=== PATIENT | female | born 1980 | race African-American/Black ===

== ENCOUNTER 2016-02-27 10:00 | Inpatient (IN) | payer OTHER ==
[2016-02-27] MEDS ORDERED: ELECTROLYTE-148 SOLN 500 ML IV SCH ×2 (10:40→11:10)
[2016-02-27] MEDS ORDERED: CITRIC ACID/SODIUM CITRATE 30 ML UNIT-DOSE CUP PO ONE ×2 (10:40→12:19)
[2016-02-27 11:25] VITALS: BMI 35.2
--- NOTE | 2016-02-27 12:29 | HP ---
Past Medical History - Primary Care Physician PCP:: Arjun Hernández - Admission Chief Complaint: 39,2 weeks, previous c/s, GDM ,labor History of Present Illness: 35 yo f with hx of GDM, diet controlled ,c/o contraction since 10 am today, no rom, no bleeding. cx 1 to 2 cm 70 vx -2 mi, fhr cat 2 , advised repeat c/s , risk of c/s discussed aware risk of infection, bleeding, injury to bladder, bowel, vessels,post op complication, bleeding, blood transfusion, discussed. agrred to have c/s,declined BTL History Source: Patient Limitations to Obtaining History: No Limitations - Past Medical History ...: 5 ...Para: 3 ...Term: 3 ...: 0 ...Spon : 1 ...Induced : 0 ...Multiple Gestation: 0 ...LMP: 06/05/15 ... Weeks Gestation by Dates: 38.1 ...EDC by Dates: 03/11/16 ...EDC by Sono: 03/03/16 Endocrine: Yes: Diabetes Mellitus (gestational, diet controlled , non complient) - Past Surgical History Past Surgical History: Yes: Hx Myomectomy: No Hx Transabdominal Cerclage: No - Smoking History Smoking history: Never smoked Have you smoked in the past 12 months: No Aproximately how many cigarettes per day: 0 - Alcohol/Substance Use Hx Alcohol Use: No - Social History History of Recent Travel: No Home Medications - Allergies Allergies/Adverse Reactions: Allergies Allergy/AdvReac Type Severity Reaction Status Date / Time No Known Allergies Allergy Verified 07/18/15 11:10 - Home Medications Home Medications: Ambulatory Orders Pnv95/Ferrous Fumarate/FA [ Caplet] 1 each PO DAILY 02/27/16 Review of Systems - Review of Systems Constitutional: reports: No Symptoms Eyes: reports: No Symptoms HENT: reports: No Symptoms Neck: reports: No Symptoms Cardiovascular: reports: No Symptoms Respiratory: reports: No Symptoms Gastrointestinal: reports: Abdominal Pain Genitourinary: reports: No Symptoms Breasts: reports: No Symptoms Reported Musculoskeletal: reports: No Symptoms Integumentary: reports: No Symptoms Neurological: reports: No Symptoms Endocrine: reports: No Symptoms Hematology/Lymphatic: reports: No Symptoms Psychiatric: reports: No Symptoms Physical Exam - Maternity Vital Signs: Vital Signs Temperature 98.2 F 02/27/16 10:58 Pulse Rate 88 02/27/16 10:58 Respiratory Rate 20 02/27/16 10:58 Blood Pressure 133/74 02/27/16 10:58 O2 Sat by Pulse Oximetry (%) Constitutional: Yes: Well Nourished, No Distress, Calm Eyes: Yes: WNL, Conjunctiva Clear, EOM Intact HENT: Yes: WNL, Atraumatic, Normocephalic Neck: Yes: WNL, Supple, Trachea Midline Cardiovascular: Yes: WNL, Regular Rate and Rhythm Breast(s): Yes: WNL - Abdominal Exam/OB Number of Fetuses: Single Presentation: Vertex Regularity: Regular Intensity: Mod/Strong Heart Rate Location: [facility] Category: II Accelerations: Non-Uniform Decelerations: None - Vaginal Exam/OB Vaginal Bleediing: No Speculum Exam: No Dilatation (cm): 1 to 2 Effacement (%): 75 Amniotic Membrane Status: Intact Presentation: Vertex/Position Station: -2 - Physical Exam Musculoskeletal: Yes: Back Pain Edema: Yes Edema: LLE: Trace, RLE: Trace Deep Tendon Reflex Grade: Normal +2 Psychiatric: Yes: WNL Hemorrhage Risk Assessment - Risk Factors Medium Risk Factors: Yes: Prior , uterine surgery,or multiple laparotomies Risk Score: 1 Risk Level: Medium Risk Problem List - Problems (1) with 39 completed weeks gestation Code(s): Z3A.39 - 39 WEEKS GESTATION OF (2) Previous section complicating Code(s): O34.21 - MATERNAL CARE FOR SCAR FROM PREVIOUS * DO NOT USE * (3) Gestational diabetes mellitus Code(s): O24.419 - GESTATIONAL DIABETES MELLITUS IN , UNSP CONTROL Qualifiers: Gestational diabetes mellitus control: diet-controlled Trimester: third trimester Qualified Code(s): O24.410 - Gestational diabetes mellitus in , diet controlled (4) First stage of labor established Code(s): UXW0808 - Assessment/Plan admit for repeat c/s rba explained. agreed
[2016-02-27 14:11] LABS: ARTERIAL BLD GAS O2 SATURATION 14.4 % (90-98.9); ARTERIAL BLOOD GAS BASE EXCESS -3.6 meq/l (-2-2); ARTERIAL BLOOD GAS HCO3 25.2 meq/L (22-26); ARTERIAL BLOOD GAS PO2 7.9 mmHg (80-100); ARTERIAL BLOOD GAS pH 7.23 (7.35-7.45)
[2016-02-27 14:13] LABS: ART PUNCT SITE OTHER; LPM/O2% 21%; PT. ON O2? NO; TYPE OF O2 R/A
[2016-02-27 14:16] LABS: ART PUNCT SITE OTHER; ARTERIAL BLD GAS O2 SATURATION 37.4 % (90-98.9); ARTERIAL BLOOD GAS BASE EXCESS -3.1 meq/l (-2-2); ARTERIAL BLOOD GAS HCO3 23.6 meq/L (22-26); ARTERIAL BLOOD GAS PO2 19.1 mmHg (80-100); ARTERIAL BLOOD GAS pH 7.29 (7.35-7.45); LPM/O2% N; PT. ON O2? NO; TYPE OF O2 R/A
[2016-02-27] MEDS ORDERED: oxyCODONE HCL 5 MG TABLET PO PRN ×2 (14:20)
[2016-02-27] MEDS ORDERED: IBUPROFEN 800 MG/8 ML IJ IVPB PRN (14:20)
[2016-02-27] MEDS ORDERED: BENZOCAINE 28 GM HEMORRHOIDAL OINTMENT PR PRN (14:20)
[2016-02-27] MEDS ORDERED: BENZOCAINE 20% 57 GM BOTTLE TP PRN (14:20)
[2016-02-27] MEDS ORDERED: diphenhydrAMINE HCL 25 MG CAPSULE (FP) PO PRN (14:20)
[2016-02-27] MEDS ORDERED: METHYLERGONOVINE MALEATE 0.2 MG/1 ML AMP IM PRN (14:20)
[2016-02-27] MEDS ORDERED: WITCH HAZEL 50% (TUCKS) 40 PAD/JAR PAD TP PRN (14:20)
[2016-02-27] MEDS ORDERED: OXYTOCIN 20 UNITS in 0.9% NS 1,000 ML IV SCH (14:30)
[2016-02-27] MEDS ORDERED: DEXTROSE 5%-LACTATED RINGERS 1,000 ML IV SCH (14:30)
[2016-02-27] MEDS ORDERED: ONDANSETRON 4 MG/2 ML VIAL IVPB PRN (14:39)
[2016-02-27] MEDS ORDERED: morphine SULFATE/Preservative Free 0.5 MG/ML (1cc Syringe) SPIN ONE (14:39)
[2016-02-27] MEDS: CEFAZOLIN 1 GM/D5W 50 ML IVPB SCH (18:19)
[2016-02-28] MEDS: CEFAZOLIN 1 GM/D5W 50 ML IVPB SCH (01:56)
[2016-02-28 07:54] LABS: BASOPHIL 0.4 % (0-2.0); EOSINOPHIL 0.5 % (0-4.5); MCH 23.6 pg (25.7-33.7); MCHC 32.6 g/dl (32.0-36.0); MEAN CELL VOLUME 72.3 fl (80-96); MEAN PLT VOLUME 9.3 fl (7.5-11.1); PLATELET COUNT 128 K/MM3 (134-434); RDW 18.1 % (11.6-15.6); WHITE BLOOD COUNT 9.6 K/mm3 (4.0-10.0)
[2016-02-28] MEDS: SIMETHICONE 80 MG TAB.CHEW (FP) PO PRN ×3 (08:24→23:07)
[2016-02-28] MEDS: IBUPROFEN 600 MG TABLET (FP) PO PRN ×3 (08:24→23:08)
--- NOTE | 2016-02-28 08:34 | PN ---
Progress Note (short form) - Note Progress Note: pod 1 doing well ,has mild incisional pain Last Vital Signs Temp Pulse Resp BP Pulse Ox 98.9 F 87 20 122/75 02/28/16 06:00 02/28/16 06:00 02/28/16 06:00 02/28/16 06:00 abdomen soft, mild incisional tenderness . incision dry, clean ,no distension , no cva no calf tenderness plan ambulate , cbc, pain management Problem List - Problems (1) with 39 completed weeks gestation Code(s): Z3A.39 - 39 WEEKS GESTATION OF (2) Previous section complicating Code(s): O34.21 - MATERNAL CARE FOR SCAR FROM PREVIOUS * DO NOT USE * (3) Gestational diabetes mellitus Code(s): O24.419 - GESTATIONAL DIABETES MELLITUS IN , UNSP CONTROL Qualifiers: Gestational diabetes mellitus control: diet-controlled Trimester: third trimester Qualified Code(s): O24.410 - Gestational diabetes mellitus in , diet controlled (4) First stage of labor established Code(s): WIQ4179 -
[2016-02-28] MEDS ORDERED: DIPHTH,PERTUSS(ACELL),TET 0.5 ML DISP.SYRIN IM ONE (10:00)
[2016-02-28] MEDS: ENOXAPARIN NA (PORCINE) 40 MG/0.4 ML DISP.SYRIN SQ SCH (11:22)
--- NOTE | 2016-02-28 12:08 | PN ---
Progress Note (short form) - Note Progress Note: Anesthesia postop note 35 y/o F s/p spinal anesthesia for section, duramorph for postop pain management. POD#1, AAOX3, VSS, ambulating, pain well controlled, no complaints. No anesthesia complications.
[2016-02-28] MEDS ORDERED: BISACODYL 10 MG SUPP.RECT RC PRN (14:20)
[2016-02-28] MEDS: ACETAMINOPHEN 325 MG TABLET (FP) PO PRN ×2 (14:29→23:07)
--- NOTE | 2016-02-29 07:33 | PN ---
Post Progress Note - Subjective Subjective: Doing well postop. Tolerating regular diet, ambulating, voiding, passing flatus , pain well controlled. Mild incisional pain. Type of Delivery: Repeat C/S Vital Signs: Vital Signs Temperature 98.0 F 02/28/16 22:00 Pulse Rate 84 02/28/16 22:00 Respiratory Rate 20 02/28/16 22:00 Blood Pressure 124/80 02/28/16 22:00 O2 Sat by Pulse Oximetry (%) Breast Exam: Yes: Soft Uterus: Yes: Fundus Firm, Fundus below umbilicus Incision: Yes: Dressing dry and intact Abdomen/GI: Yes: Abdomen soft, Passing flatus Lochia: Yes: Rubra Lochia, amount: Small Extremities: Yes: Calves non-tender Perineum: Yes: Intact Activity: Ambulating - Labs Labs: CBC WBC 9.6 K/mm3 (4.0-10.0) D 02/28/16 05:35 RBC 4.47 M/mm3 (3.60-5.2) 02/28/16 05:35 Hgb 10.5 GM/dL (10.7-15.3) L D 02/28/16 05:35 Hct 32.3 % (32.4-45.2) L 02/28/16 05:35 MCV 72.3 fl (80-96) L 02/28/16 05:35 MCHC 32.6 g/dl (32.0-36.0) 02/28/16 05:35 RDW 18.1 % (11.6-15.6) H 02/28/16 05:35 Plt Count 128 K/MM3 (134-434) L 02/28/16 05:35 MPV 9.3 fl (7.5-11.1) 02/28/16 05:35 Neutrophils % 75.0 % (42.8-82.8) 02/28/16 05:35 Lymphocytes % 15.4 % (8-40) D 02/28/16 05:35 Monocytes % 8.7 % (3.8-10.2) 02/28/16 05:35 Eosinophils % 0.5 % (0-4.5) 02/28/16 05:35 Basophils % 0.4 % (0-2.0) 02/28/16 05:35 Assessment/Plan 33P2 POD#2 s/p R C/S, in labor. GDM. Doing well post op. VSS. AF. Hct stable -Routine postop care -Ambulate -Regular diet -encourage ambulation -anticipate d/c home POD#3/POD#4
[2016-02-29] MEDS: ENOXAPARIN NA (PORCINE) 40 MG/0.4 ML DISP.SYRIN SQ SCH (09:47)
[2016-02-29] MEDS: SIMETHICONE 80 MG TAB.CHEW (FP) PO PRN ×3 (09:55→21:43)
[2016-02-29] MEDS: ACETAMINOPHEN 325 MG TABLET (FP) PO PRN ×2 (09:55→17:11)
[2016-02-29] MEDS: IBUPROFEN 600 MG TABLET (FP) PO PRN ×3 (09:57→21:43)
[2016-02-29] MEDS ORDERED: SENNOSIDES/DOCUSATE COMBO (SENNA PLUS) TABLET (UD) PO PRN (22:00)
[2016-03-01 08:34] LABS: BASOPHIL 0.5 % (0-2.0); EOSINOPHIL 2.7 % (0-4.5); MCH 23.2 pg (25.7-33.7); MCHC 32.1 g/dl (32.0-36.0); MEAN CELL VOLUME 72.3 fl (80-96); NEUTROPHILS 68.2 % (42.8-82.8); PLATELET COUNT 157 K/MM3 (134-434); RDW 18.7 % (11.6-15.6); WHITE BLOOD COUNT 7.5 K/mm3 (4.0-10.0)
--- NOTE | 2016-03-01 08:43 | PN ---
Post Progress Note - Subjective Subjective: c/o pain scale 5-7 Post Day: 3 Type of Delivery: Repeat C/S Vital Signs: Vital Signs Temperature 98.3 F 03/01/16 08:25 Pulse Rate 77 03/01/16 08:25 Respiratory Rate 20 03/01/16 08:25 Blood Pressure 139/90 03/01/16 08:25 O2 Sat by Pulse Oximetry (%) Breast Exam: Yes: Soft, Other (BF , using pump ). No: Engorged Uterus: Yes: Fundus Firm, Fundus below umbilicus, Non-tender Incision: Yes: Dressing dry and intact, [place] intact Abdomen/GI: Yes: Abdomen soft, Tender, Passing flatus, Tolerating PO (diet). No : Abdominal Distention Lochia: Yes: Rubra Lochia, amount: Moderate Extremities: Yes: Calves non-tender Perineum: Yes: Intact Activity: Ambulating - Labs Labs: CBC WBC 7.5 K/mm3 (4.0-10.0) 03/01/16 06:30 RBC 4.29 M/mm3 (3.60-5.2) 03/01/16 06:30 Hgb 10.0 GM/dL (10.7-15.3) L 03/01/16 06:30 Hct 31.0 % (32.4-45.2) L 03/01/16 06:30 MCV 72.3 fl (80-96) L 03/01/16 06:30 MCHC 32.1 g/dl (32.0-36.0) 03/01/16 06:30 RDW 18.7 % (11.6-15.6) H 03/01/16 06:30 Plt Count 157 K/MM3 (134-434) D 03/01/16 06:30 MPV 10.0 fl (7.5-11.1) 03/01/16 06:30 Neutrophils % 68.2 % (42.8-82.8) 03/01/16 06:30 Lymphocytes % 21.7 % (8-40) D 03/01/16 06:30 Monocytes % 6.9 % (3.8-10.2) 03/01/16 06:30 Eosinophils % 2.7 % (0-4.5) D 03/01/16 06:30 Basophils % 0.5 % (0-2.0) 03/01/16 06:30 Assessment/Plan stable. ct po care
[2016-03-01] MEDS: ENOXAPARIN NA (PORCINE) 40 MG/0.4 ML DISP.SYRIN SQ SCH (09:59)
[2016-03-01] MEDS: SIMETHICONE 80 MG TAB.CHEW (FP) PO PRN ×2 (15:11→21:43)
[2016-03-01] MEDS: IBUPROFEN 600 MG TABLET (FP) PO PRN ×2 (15:11→21:44)
[2016-03-01] MEDS: ACETAMINOPHEN 325 MG TABLET (FP) PO PRN ×2 (15:12→21:44)
--- NOTE | 2016-03-01 20:50 | OP ---
DATE OF OPERATION: 02/27/2016 PREOPERATIVE DIAGNOSIS: 39 weeks, previous section, labor, request of repeat section. POSTOPERATIVE DIAGNOSIS: 39 weeks, previous section, labor, request of repeat section. PROCEDURE: Repeat low segment transverse section. SURGEON: Ravi Hernández M.D. BECK TENDER: Hu Cox ANESTHESIA: Spinal. ESTIMATED BLOOD LOSS: 500 mL. OPERATION: Patient was taken to operating room with adequate spinal anesthesia. Abdomen and peritoneum were prepped and draped. Pfannenstiel abdominal skin incision was made over the previous incision. Abdominal wall was cut layer by layer until the peritoneum was exposed and incised. Upon entering the abdominal cavity, the lower uterine segment was identified, and uterovesical fold of the peritoneum was established. The bladder was pushed down. Then with the lower blade of the Tushar retractor in the pelvis, a low transverse uterine incision was made. The incision extended laterally. Amniotic sac was entered. Clear fluid. Head delivered. Nasopharynx was suctioned. A live baby was delivered without any difficulty. Placenta was delivered manually. Uterine cavity was cleared of all remaining tissue. Uterine incision was closed in 2 layers, the 1st layer with 0 Biosyn continuous suture, the 2nd layer with 0 Biosyn imbricating the 1st layer. Bladder flap was closed with 0 Biosyn continuous suture. Both tubes and ovaries were checked and were normal. No active bleeding was seen. All the lap, sponge, and instrument counts were correct. Then peritoneum was closed with 0 Biosyn continuous suture. Muscles were brought together interrupted suture with 0 Biosyn. Fascia was closed with 0 Biosyn continuous sutures. Subcutaneous fat with interrupted sutures 0 Biosyn, and the skin was closed with lopez. The patient tolerated the procedure well and left the OR in good condition. RAVI HERNÁNDEZ M.D. [id number]
[2016-03-02 08:33] VITALS: BP 123/77; PULSE 79; TEMP 97.7
--- NOTE | 2016-03-02 08:45 | PN ---
Post Progress Note - Subjective Subjective: doing well, no issues no complaints Post Day: 4 Type of Delivery: Repeat C/S Vital Signs: Vital Signs Temperature 97.7 F 03/02/16 08:26 Pulse Rate 79 03/02/16 08:26 Respiratory Rate 20 03/02/16 08:26 Blood Pressure 123/77 03/02/16 08:26 O2 Sat by Pulse Oximetry (%) Breast Exam: Yes: Soft Uterus: Yes: Fundus Firm Incision: Yes: Evangeline intact Abdomen/GI: Yes: Abdomen soft Lochia: Yes: Rubra Lochia, amount: Small Extremities: Yes: Calves non-tender Perineum: Yes: Intact Activity: Ambulating - Labs Labs: CBC WBC 7.5 K/mm3 (4.0-10.0) 03/01/16 06:30 RBC 4.29 M/mm3 (3.60-5.2) 03/01/16 06:30 Hgb 10.0 GM/dL (10.7-15.3) L 03/01/16 06:30 Hct 31.0 % (32.4-45.2) L 03/01/16 06:30 MCV 72.3 fl (80-96) L 03/01/16 06:30 MCHC 32.1 g/dl (32.0-36.0) 03/01/16 06:30 RDW 18.7 % (11.6-15.6) H 03/01/16 06:30 Plt Count 157 K/MM3 (134-434) D 03/01/16 06:30 MPV 10.0 fl (7.5-11.1) 03/01/16 06:30 Neutrophils % 68.2 % (42.8-82.8) 03/01/16 06:30 Lymphocytes % 21.7 % (8-40) D 03/01/16 06:30 Monocytes % 6.9 % (3.8-10.2) 03/01/16 06:30 Eosinophils % 2.7 % (0-4.5) D 03/01/16 06:30 Basophils % 0.5 % (0-2.0) 03/01/16 06:30 Assessment/Plan as above oob dc home today see on sunday
[2016-03-02] MEDS: ENOXAPARIN NA (PORCINE) 40 MG/0.4 ML DISP.SYRIN SQ SCH (09:38)
[2016-03-02] MEDS: SIMETHICONE 80 MG TAB.CHEW (FP) PO PRN ×2 (11:06→15:41)
[2016-03-02] MEDS: IBUPROFEN 600 MG TABLET (FP) PO PRN ×2 (11:06→15:40)
[2016-03-02] MEDS: ACETAMINOPHEN 325 MG TABLET (FP) PO PRN (11:07)
--- NOTE | 2016-03-02 13:17 | PATH ---
Surgical Pathology Report Patient Name: RAVI DUNN Med. Rec. #: [id number] /Age/Gender: 1980 (Age: 35) / F Account: [id number] Location: [facility] OBS/PICKERS MATERIAL HANDLERS Taken: 02/27/2016 Received: 02/28/2016 Reported: 03/02/2016 Physicians: Arjun Hernández M.D. Specimen(s) Received PLACENTA Clinical History , GDM-diet, c/section x2, 2009, 2014/ -2006 Repeat c/section in labor Final Diagnosis PLACENTA, DELIVERY: FOCALLY DISRUPTED THIRD TRIMESTER PLACENTA WITH MILD INCREASE IN PREVILLOUS, PERIVILLOUS, AND PRECHORIONIC FIBRIN DEPOSITION, THREE VESSEL UMBILICAL CORD, AND PLACENTAL MEMBRANES WITH FOCAL AMNION HYPERPLASIA. Electronically Signed Sesar Koo M.D. Gross Description The specimen is received fresh, labeled "placenta" and is a 541 gram, 17.5 x 16.0 x 2.8 cm placenta with attached membranes and umbilical cord. The attached membranes are ramirez, translucent with focal opacities and insert marginally. The umbilical cord measures 12 cm in length and averages 1.1 cm in diameter. The cord inserts eccentrically, 4.5 cm to the nearest margin. No true knots or strictures are identified. Cut surface of the umbilical cord reveals 3 vessels. The surface is thurston-blue with fibrin deposition and appropriate caliber vessels. The maternal surface is red-brown with focal defects. Sectioning reveals red-brown, spongy parenchyma. No focal lesions are identified. Assessment Coordinator sections are submitted in three cassettes as follows: 1- membrane rolls and umbilical cord; 2-3- full thickness sections of placenta. /03/01/2016 [facility]03/01/2016
--- NOTE | 2016-03-02 20:23 | DS ---
Physical Exam-LONGITUDINAL FLOAT OPERATOR Vital Signs: Vital Signs Temperature 97.7 F 03/02/16 08:26 Pulse Rate 79 03/02/16 08:26 Respiratory Rate 20 03/02/16 08:26 Blood Pressure 123/77 03/02/16 08:26 O2 Sat by Pulse Oximetry (%) Constitutional: Yes: Well Nourished, No Distress, Calm Eyes: Yes: WNL, Conjunctiva Clear, EOM Intact HENT: Yes: WNL, Atraumatic, Normocephalic Neck: Yes: WNL, Supple, Trachea Midline Cardiovascular: Yes: WNL, Regular Rate and Rhythm Respiratory: Yes: WNL, Regular, CTA Bilaterally Gastrointestinal: Yes: WNL ...Rectal Exam: Yes: WNL Renal/: Yes: WNL ....Post : Yes: Uterus firm, Uterus non-tender, Moderate lochia serosa Breast(s): Yes: WNL Musculoskeletal: Yes: WNL Extremities: Yes: WNL Edema: No Integumentary: Yes: WNL Wound/Incision: Yes: Clean/Dry, Well Approximated, Saima Intact Neurological: Yes: WNL, Alert, Oriented ...Motor Strength: WNL Psychiatric: Yes: WNL, Alert, Oriented Labs: CBC, BMP 03/01/16 06:30 Delivery - Delivery Section: Repeat, Low Flap Transverse Type of Anesthesia: Epidural, Spinal (no complication) Episiotomy/Laceration: None EBL (cc): 500 Delivery, Single - Stages of Labor Date 1st Stage Initiatied: 02/27/16 Time 1st Stage Initiated: 01:00 Date of Delivery: 02/27/16 Time of Delivery: 13:50 Time Placenta Delivered: 13:52 Placenta: Yes: Expressed - Condition of Infant Correction Lieutenant/Legal Recruiter Present: No Gender: Female Weight: 9 lb 4 oz Position: Left, OA Total Hours ROM (Hrs/Mins): 0/2 - 1 Minute Total Score: 8 5 Minutes Total Score: 8 - [place] Feeding Plan Initial Plan: Elected not to breastfeed exclusively throughout hospitalization Discharge Summary Reason For Visit: REPEAT C SECTION Procedures: Principal: repeat LST c/s Condition: Good - Instructions Diet, Activity, Other Instructions: see on for staple removal 03/06/16 call [facility] for appointment. [phone]. Referrals: Av Pino MD [Staff Physician] - Disposition: HOME - Home Medications Comprehensive Discharge Medication List: Ambulatory Orders Pnv95/Ferrous Fumarate/FA [ Caplet] 1 each PO DAILY 02/27/16 Ibuprofen [Motrin -] 600 mg PO TID #21 tablet 03/02/16
== END 2016-03-02 16:10 | disposition home or self-care (01) | DRG 540 ==
LOC: JDEL 10:00 → JLDR 10:40 → J3W 16:49
PROVIDERS: ADMIT Obstetrics & Gynecology; ATTEND Obstetrics & Gynecology
PROC: 10D00Z1 Extraction of Products of Conception, Low, Open Approach (ICD-10-PCS; principal; 2016-02-27)
DX: O34.211 Maternal care for low transverse scar from previous cesarean delivery (principal); O24.420 Gestational diabetes mellitus in childbirth, diet controlled; Z3A.39 39 weeks gestation of pregnancy; Z37.0 Single live birth
CPT/HCPCS: 36415; 36600; 82803; 85025; 88307-TC; 90715

== ENCOUNTER 2018-01-24 20:26 | Emergency (ER) | payer OTHER ==
[2018-01-24 20:38] VITALS: BP 169/88; PULSE 98; TEMP 98; BMI 34.7
[2018-01-24] MEDS ORDERED: ACETAMINOPHEN 325 MG TABLET (FP) PO ONE (22:16)
[2018-01-24] MEDS ORDERED: ACETAMINOPHEN 325 MG TABLET (FP) ONE (22:24)
--- NOTE | 2018-01-24 22:25 | PDOC ---
History of Present Illness - General Chief Complaint: Lightheaded Stated Complaint: Revisit, Lab Variance Time Seen by Provider: 01/24/18 22:04 History Source: Patient Exam Limitations: No Limitations Past History - Past Medical History Allergies/Adverse Reactions: Allergies Allergy/AdvReac Type Severity Reaction Status Date / Time No Known Allergies Allergy Verified 07/18/15 11:10 Home Medications: Ambulatory Orders Ferrous Sulfate 325 mg PO DAILY #30 tablet 01/24/18 Anemia: Yes Asthma: No Cancer: No Cardiac Disorders: No COPD: No Diabetes: No HTN: No Seizures: No Thyroid Disease: No - Reproductive History (#): 3 Para: 2 Cervical CA: No Dysfunctional Uterine Bleeding: No Ectopic : No Endometrial CA: No Polycystic Ovaries: No Therapeutic (s) & number: No Tubal Ligation: No Spontaneous : 0 - Suicide/Smoking/Psychosocial Hx Smoking Status: No Smoking History: Never smoked Have you smoked in the past 12 months: No Number of Cigarettes Smoked Daily: 0 Information on smoking cessation initiated: No Hx Alcohol Use: No Drug/Substance Use Hx: No Substance Use Type: None Hx Substance Use Treatment: No *Physical Exam - Vital Signs Last Vital Signs Temp Pulse Resp BP Pulse Ox 98.0 F 98 H 16 169/88 100 01/24/18 20:35 01/24/18 20:35 01/24/18 20:35 01/24/18 20:35 01/24/18 20:35 - Physical Exam General Appearance: No: Apparent Distress HEENT: negative: Pale Conjunctivae Respiratory/Chest: positive: Lungs Clear, Normal Breath Sounds. negative: Respiratory Distress Cardiovascular: positive: Regular Rhythm, Regular Rate, S1, S2. negative: Murmur Gastrointestinal/Abdominal: positive: Normal Bowel Sounds, Soft. negative: Tender, Distended, Guarding, Rebound Neurologic: positive: Fully Oriented, Alert, Normal Mood/Affect Moderate Sedation - Procedure Monitoring Vital Signs: Procedure Monitoring Vital Signs Temperature 98.0 F 01/24/18 20:35 Pulse Rate 98 H 01/24/18 20:35 Respiratory Rate 16 01/24/18 20:35 Blood Pressure 169/88 01/24/18 20:35 O2 Sat by Pulse Oximetry (%) 100 01/24/18 20:35 ED Treatment Course - LABORATORY CBC & Chemistry Diagram: 01/24/18 22:34 01/24/18 22:34 Medical Decision Making - Medical Decision Making 37 y/o F with no sig pmh presents as states had blood work done at PCP office which showed Hgb/Hct of 7.6/27.6 and was advised to come to ED for evaluation. Patient mentions having generalized MITCHELL and occasional lightheadedness x 1 week. Mentions she does have heavy menstrual cycles, though her cycle in December was not heavy. States her period also just started this evening (started after blood work was done). However, notes period is not heavy at this time. Patient mentions she was supposed to be taking iron for her heavy periods but stopped taking it months ago as it made her sleepy. Denies fever, sob, cp, abd pain, n/v /d, black/bloody stools, hematuria. Denies any recent surgeries. Patient has been transfused once in the past (in 2009 s/p ) Will check for anemia Plan: CBC, BMP, type and screen; PO Tylenol for MITCHELL 01/24/18 22:21 Patient reassessed and mentions she feels fine; denies any MITCHELL or lightheadedness Labs show Hgb of 7.3, Hct of 23.5 Patient mentions only having light vaginal bleeding right now Given patient asymptomatic and Hgb is not <7, will not currently transfuse D/W patient the importance of taking PO iron Will also refer to cuffing machine operator, Dr. Balderas for further care (in case she wants to consider IV iron) Return precautions given Stable for d/c 01/24/18 23:32 *DC/Admit/Observation/Transfer Diagnosis at time of Disposition: Anemia Qualifiers: Anemia type: iron deficiency Iron deficiency anemia type: other iron deficiency Qualified Code(s): D50.8 - Other iron deficiency anemias - Discharge Dispostion Disposition: HOME Condition at time of disposition: Stable Decision to Admit order: No - Prescriptions Prescriptions: Ferrous Sulfate 325 mg PO DAILY #30 tablet - Referrals Referrals: Rad Balderas MD [Staff Physician] - Call tomorrow - Patient Instructions Printed Discharge Instructions: DI for Iron Deficiency Anemia-Adult, Good Food Sources of Iron Additional Instructions: Thank you for choosing [facility]. It was a pleasure taking care of you. Your labwork shows that you are anemic, likely due to deficiency in iron Please take the iron supplements daily and follow-up with cuffing machine operator, Dr. Balderas Also follow-up with your PCP in 2-3 days Encourage eating foods high in iron as well. Return to the Emergency Department if your symptoms worsen or persist, you have fever, shortness of breath, chest pain, very heavy bleeding, black stools, feel extremely fatigued/weak/lightheaded, pass out or have other concerning symptoms. - Post Discharge Activity
--- NOTE | 2018-01-24 22:36 | PDOC ---
*Physical Exam - Vital Signs Last Vital Signs Temp Pulse Resp BP Pulse Ox 98.0 F 98 H 16 169/88 100 01/24/18 20:35 01/24/18 20:35 01/24/18 20:35 01/24/18 20:35 01/24/18 20:35 - Physical Exam Comments: 01/24/18 22:36 The patient was examined by [MAUREEN Harrington] under my direct supervision. I personally evaluated the patient. I concur with the above findings and the plan of care.
[2018-01-24 22:45] LABS: EOS % 4.6 % (0-4.5); HEMATOCRIT 23.5 % (32.4-45.2); HEMOGLOBIN 7.3 GM/dL (10.7-15.3); LYMPH % 21.8 % (8-40); MCHC 31.1 g/dl (32.0-36.0); MEAN CELL VOLUME 51.5 fl (80-96); MEAN PLT VOLUME 8.6 fl (7.5-11.1); MONO % 6.6 % (3.8-10.2); PLATELET COUNT 291 K/MM3 (134-434); RBC 4.56 M/mm3 (3.60-5.2); WHITE BLOOD COUNT 7.5 K/mm3 (4.0-10.0)
[2018-01-24 23:04] LABS: ANION GAP 6 MMOL/L (8-16); BLOOD UREA NITROGEN 16 mg/dL (7-18); CALCIUM 8.5 mg/dL (8.5-10.1); CHLORIDE 106 mmol/L (98-107); CO2 27 mmol/L (21-32); CREATININE 0.8 mg/dL (0.55-1.3); GLUCOSE,RANDOM 144 mg/dL (74-106); POTASSIUM 3.4 mmol/L (3.5-5.1); SODIUM 139 mmol/L (136-145)
[2018-01-24 23:17] LABS: ANISOCYTOSIS 3+; PLATELET ESTIMATE ADEQUATE
== END 2018-01-24 23:54 | disposition home or self-care (01) ==
LOC: JER 20:26
DX: D50.8 Other iron deficiency anemias (principal)
CPT/HCPCS: 36415; 80048; 84703; 85025; 86850; 86900; 86901; 99281-25

== ENCOUNTER 2018-11-16 10:13 | Inpatient (IN) | payer OTHER ==
--- NOTE | 2018-11-16 11:54 | PDOC ---
History of Present Illness - General Chief Complaint: Headache Stated Complaint: HEAD HURTING Time Seen by Provider: 11/16/18 11:03 - History of Present Illness Initial Comments: The pt is a 38F w/ a history of iron deficiency anemia, menorrhagia, and HAs who presents for evaluation of 3 weeks of gradual onset, waxing/waning, left- sided MITCHELL that is throbbing, non-radiating, is sometimes associated with visual disturbances, is worsened by light and sound and is mildly alleviated by Tylenol. She states she was seen by her primary in [facility] yesterday where labs were drawn and was told to present to the ED today for evaluation of a low hemoglobin, reportedly in the 6's. She denies fevers/chills, current visual disturbances, dizziness, chest pain, SOB, abdominal pain, current N/V, diarrhea, dysuria, or blood in her stool or urine. Her LMP was 11/01/18 and they last approximately 10d on average. She denies any abnormal vaginal bleeding or discharge. 11/16/18 12:18 Past History - Past Medical History Allergies/Adverse Reactions: Allergies Allergy/AdvReac Type Severity Reaction Status Date / Time No Known Allergies Allergy Verified 11/16/18 10:20 Home Medications: Ambulatory Orders Ferrous Sulfate 325 mg PO DAILY #30 tablet 01/24/18 Anemia: Yes Asthma: No Cancer: No Cardiac Disorders: No COPD: No Diabetes: No HTN: No Seizures: No Thyroid Disease: No - Reproductive History (#): 3 Para: 2 Cervical CA: No Dysfunctional Uterine Bleeding: No Ectopic : No Endometrial CA: No Polycystic Ovaries: No Therapeutic (s) & number: No Tubal Ligation: No Spontaneous : 0 - Psycho Social/Smoking Cessation Hx Smoking Status: No Smoking History: Never smoked Have you smoked in the past 12 months: No Number of Cigarettes Smoked Daily: 0 Hx Alcohol Use: No Drug/Substance Use Hx: No Substance Use Type: None Hx Substance Use Treatment: No Review of Systems - Review of Systems Able to Perform ROS?: Yes Comments:: GENERAL/CONSTITUTIONAL: No fever or chills HEAD, EYES, EARS, NOSE AND THROAT: No change in vision. No change in hearing. No sore throat CARDIOVASCULAR: No chest pain or shortness of breath RESPIRATORY: Denies cough, hemoptysis GASTROINTESTINAL: No diarrhea or constipation GENITOURINARY: No dysuria, frequency, or change in urination MUSCULOSKELETAL: No joint or muscle swelling or pain. No neck or back pain SKIN: No rash NEUROLOGIC: No vertigo, loss of consciousness, or change in strength/sensation ENDOCRINE: No increased thirst. No abnormal weight change HEMATOLOGIC/LYMPHATIC: +anemia; Denies history of easy bruising or blood clots ALLERGIC/IMMUNOLOGIC: No hives or skin allergy 11/16/18 11:54 Is the patient limited Slovak proficient: No *Physical Exam - Vital Signs Last Vital Signs Temp Pulse Resp BP Pulse Ox 99 F 96 H 20 150/95 100 11/16/18 10:20 11/16/18 11:25 11/16/18 11:25 11/16/18 11:25 11/16/18 11:25 - Physical Exam Comments: GENERAL: Awake, alert, and oriented to person/place/time, in no acute distress HEAD: No signs of trauma, normocephalic, atraumatic EYES: PERRLA, EOMI, sclera anicteric, conjunctiva clear ENT: Hearing grossly normal, nares patent, oropharynx clear without exudates. Moist mucosa LUNGS: No distress, speaks in full sentences, clear to auscultation bilaterally HEART: Regular rate and rhythm, normal S1 and S2, no murmurs appreciated, peripheral pulses normal and equal bilaterally ABDOMEN: Soft, nontender, normoactive bowel sounds. No guarding, no rebound EXTREMITIES: Normal inspection, Normal range of motion, no edema. No clubbing or cyanosis NEUROLOGICAL: Cranial nerves II through XII grossly intact. Normal speech, no focal sensorimotor deficits SKIN: Warm, Dry 11/16/18 11:54 ED Treatment Course - LABORATORY CBC & Chemistry Diagram: 11/16/18 12:15 11/16/18 12:15 Medical Decision Making - Medical Decision Making The pt is a 38F w/ a history of menorrhagia, iron deficiency anemia, and HAs who presents for evaluation of 3 weeks of MITCHELL and low hemoglobin ED Course CMP, CBC, T/S, Coags, Upreg sent ECG IVF, Ofirmev, Benadryl, and Reglan for symptomatic relief Will reassess 11/16/18 12:24 Hgb 6.0, will transfuse 2u pRBC -Second T/S sent -Consent obtained No leukocytosis 11/16/18 12:56 Lytes wnl No ZULLY LFTs wnl Upreg neg 11/16/18 13:37 Plan for admission for anemia requiring transfusion Pt signed out to Vivek Admitting 11/16/18 13:51 Discharge - Discharge Information Problems reviewed: Yes Clinical Impression/Diagnosis: Anemia Qualifiers: Anemia type: iron deficiency Iron deficiency anemia type: chronic blood loss Qualified Code(s): D50.0 - Iron deficiency anemia secondary to blood loss ( chronic) Headache Qualifiers: Headache type: unspecified Headache chronicity pattern: unspecified pattern Intractability: not intractable Qualified Code(s): R51 - Headache Menorrhagia Qualifiers: Menorrahagia type: with regular cycle Qualified Code(s): N92.0 - Excessive and frequent menstruation with regular cycle Condition: Good - Admission Yes - Follow up/Referral Referrals: Macario Winslow [Primary Care Provider] - - Patient Discharge Instructions - Post Discharge Activity
[2018-11-16] MEDS ORDERED: METOCLOPRAMIDE HCL INJECTION 10 MG/2 ML VIAL IVPUSH ONE (12:03)
[2018-11-16] MEDS ORDERED: SODIUM CHLORIDE 0.9% 500 ML INFUS.BAG IV ONE (12:03)
[2018-11-16] MEDS ORDERED: ACETAMINOPHEN 1000 MG/100 ML VIAL (NON FORMULARY) IVPB ONE (12:03)
[2018-11-16] MEDS ORDERED: METOCLOPRAMIDE HCL INJECTION 10 MG/2 ML VIAL ONE (12:15)
[2018-11-16] MEDS ORDERED: ACETAMINOPHEN INJECTION 100 ML IVPB ONE (12:15)
[2018-11-16 12:25] LABS: EOS % 4.6 % (0-4.5); HEMATOCRIT 22.2 % (32.4-45.2); LYMPH % 41.2 % (8-40); MCHC 26.9 g/dl (32.0-36.0); MEAN CELL VOLUME 50.2 fl (80-96); MEAN PLT VOLUME 8.4 fl (7.5-11.1); MONO % 5.7 % (3.8-10.2); NEUT % 47.5 % (42.8-82.8); PLATELET COUNT 360 K/MM3 (134-434); RBC 4.43 M/mm3 (3.60-5.2); RDW 22.2 % (11.6-15.6); WHITE BLOOD COUNT 7.5 K/mm3 (4.0-10.0)
--- NOTE | 2018-11-16 12:35 | PDOC ---
Attending Attestation - Resident Resident Name: Je Cerna - ED Attending Attestation I have performed the following: I have examined & evaluated the patient, The case was reviewed & discussed with the resident, I agree w/resident's findings & plan, Exceptions are as noted - HPI HPI: 11/16/18 13:03 Ms. Perez is a 38 yo F h/o metromenorrhagia, iron deficiency anemia, chronic headaches. Patient reports a gradual onset of waxing and waning left-sided headache which is throbbing, nonradiating, associated with photophobia, associated with phonophobia. She has been taking Tylenol for pain with minimal effect. Patient states she was seen by her primary care physician, told that her hemoglobin was 6 (she gets surveillance labs done given her history of heavy menses, and fibroids and a PPD). No fevers or chills No nausea, vomiting, diarrhea currently patient is not having her period. She does feel weak and light headed, no chest pain Typically her menses lasts at least 10 days, and is very heavy, unable to quantify the number of pads used. She is followed by Dr. Ayala, told she has a fibroid 11/16/18 12:18 - Physicial Exam PE: 11/16/18 13:08 GENERAL: The patient is in no acute distress. EYES: PALE CONJUNCTIVA, EOMI, PERRLA ENT: Ears normal, nares patent, oropharynx clear without exudates. Moist mucous membranes. PALE GUMS NECK: Normal range of motion, supple LUNGS: Breath sounds equal, clear to auscultation bilaterally. No wheezes, and no crackles. HEART:Regular rate and rhythm, normal S1 and S2 without murmur, rub or gallop. ABDOMEN: Soft, nontender, normoactive bowel sounds. EXTREMITIES: Normal range of motion, no edema. NEUROLOGICAL: Cranial nerves II through XII grossly intact. Normal speech. No focal neurological deficits. SKIN: Palms very pale - Medical Decision Making 11/16/18 12:35 EKG: Twelve-lead EKG was performed and reviewed by me. There is normal sinus rhythm with a normal rate. The axis is normal. The intervals are normal. There are no ST or T wave abnormalities. Impression: Normal twelve-lead EKG 11/16/18 13:09 Laboratory Tests 11/16/18 11/16/18 11/16/18 12:15 12:15 12:15 WBC 7.5 Hgb 6.0 L* Hct 22.2 L Plt Count 360 D BUN 9.4 Creatinine 0.8 Urine HCG, Qual Negative Will plan to admit Will transfuse Clinical Impression: Symptomatic anemia, initial presentation menorrhagia, initial presentation Fibroids, initial presentation
[2018-11-16 12:47] LABS: MCH 13.5 pg (25.7-33.7)
[2018-11-16 12:58] LABS: ALBUMIN 3.6 g/dl (3.4-5.0); BILIRUBIN,TOTAL 0.3 mg/dL (0.2-1); BLOOD UREA NITROGEN 9.4 mg/dL (7-18); CALCIUM 8.7 mg/dL (8.5-10.1); CREATININE 0.8 mg/dL (0.55-1.3); POTASSIUM 4.2 mmol/L (3.5-5.1); TOT PROT 7.7 g/dl (6.4-8.2)
[2018-11-16 14:11] LABS: INR 1.13 (0.83-1.09); PROTHROMBIN TIME (PATIENT) 13.3 SEC (9.7-13.0)
--- NOTE | 2018-11-16 15:50 | HP ---
CHIEF COMPLAINT: anemia PCP: patient does not remember HISTORY OF PRESENT ILLNESS: 38 year old female with a past medical history of iron-deficiency anemia, menorrhagia, and migraine headaches presented to the ED after being told to come by [facility] outpatient offices when she was found to have a low hemoglobin. 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 She reports that for the past week she has had a L sided headache that is exacerbated by light and sound as well as lightheadedness. Reports that it got better after she took tylenol. Reports that she does chew on ice frequently. States that her last menstrual period was on 11/09/18 and was heavy in nature, soaking many pads - she could not remember how many pads she used. Denies taking oral contraceptives. Denies NSAID use, denies bleeding per rectum. States that she has had transfusions in the past. Currently patient is asymptomatic with no headache. ER course was notable for: (1) Hgb 6.0 (2) (3) Recent Travel: denies PAST MEDICAL HISTORY: anemia, menorrhagia, migraine headaches PAST SURGICAL HISTORY: C section Social History: Smoking: never Alcohol: never Drugs: never Family History: no family hx of bleeding, clotting disorders, cancers, strokes, heart disease, or diabetes Allergies No Known Allergies Allergy (Verified 11/16/18 10:20) HOME MEDICATIONS: Home Medications Medication Instructions Recorded Ferrous Sulfate 325 mg PO DAILY #30 tablet 01/24/18 REVIEW OF SYSTEMS CONSTITUTIONAL: Absent: fever, chills, diaphoresis, generalized weakness, malaise, loss of appetite, weight change HEENT: Absent: rhinorrhea, nasal congestion, throat pain, throat swelling, difficulty swallowing, mouth swelling, ear pain, eye pain, visual changes CARDIOVASCULAR: Absent: chest pain, syncope, palpitations, irregular heart rate, lightheadedness , peripheral edema RESPIRATORY: Absent: cough, shortness of breath, dyspnea with exertion, orthopnea, wheezing, stridor, hemoptysis GASTROINTESTINAL: Absent: abdominal pain, abdominal distension, nausea, vomiting, diarrhea, constipation, melena, hematochezia GENITOURINARY: Absent: dysuria, frequency, urgency, hesitancy, hematuria, flank pain, genital pain MUSCULOSKELETAL: Absent: myalgia, arthralgia, joint swelling, back pain, neck pain SKIN: Absent: rash, itching, pallor HEMATOLOGIC/IMMUNOLOGIC: Absent: easy bleeding, easy bruising, lymphadenopathy, frequent infections ENDOCRINE: Absent: unexplained weight gain, unexplained weight loss, heat intolerance, cold intolerance NEUROLOGIC: Absent: headache, focal weakness or paresthesias, dizziness, unsteady gait, seizure, mental status changes, bladder or bowel incontinence PSYCHIATRIC: Absent: anxiety, depression, suicidal or homicidal ideation, hallucinations. PHYSICAL EXAMINATION Vital Signs - 24 hr 11/16/18 11/16/18 10:20 11:25 Temperature 99 F Pulse Rate 114 H Pulse Rate [ 96 H Left Radial] Respiratory 20 20 Rate Blood Pressure 165/90 Blood Pressure 150/95 [Left Arm] O2 Sat by Pulse 99 100 Oximetry (%) GENERAL: A&Ox3, no acute distress EYES: PERRLA, EOMI ENT: Moist mucus membranes NECK: No JVD LUNGS: CTA, no wheezes HEART: RRR, no murmurs ABDOMEN: Soft, nontender, BS present MUSCULOSKELETAL: No CVA Tenderness EXTREMITIES: 2+ pulses, no edema. NEUROLOGICAL: Cranial nerves II-XII intact. Laboratory Results - last 24 hr 11/16/18 11/16/18 11/16/18 12:15 12:15 12:15 WBC 7.5 RBC 4.43 Hgb 6.0 L* Hct 22.2 L MCV 50.2 L MCH 13.5 L D MCHC 26.9 L RDW 22.2 H Plt Count 360 D MPV 8.4 Absolute Neuts (auto) 3.5 Neutrophils % 47.5 D Lymphocytes % 41.2 H D Monocytes % 5.7 Eosinophils % 4.6 H Basophils % 1.0 Nucleated RBC % 1 H PT with INR INR PTT (Actin FS) 30.0 Sodium 142 Potassium 4.2 Chloride 106 Carbon Dioxide 29 Anion Gap 7 L BUN 9.4 Creatinine 0.8 Est GFR (CKD-EPI)AfAm 109.93 Est GFR (CKD-EPI)NonAf 94.85 Random Glucose 80 Calcium 8.7 Total Bilirubin 0.3 AST 15 ALT 15 Alkaline Phosphatase 69 Total Protein 7.7 Albumin 3.6 Urine HCG, Qual Blood Type Antibody Screen Crossmatch 11/16/18 11/16/18 11/16/18 12:15 12:15 12:15 WBC RBC Hgb Hct MCV MCH MCHC RDW Plt Count MPV Absolute Neuts (auto) Neutrophils % Lymphocytes % Monocytes % Eosinophils % Basophils % Nucleated RBC % PT with INR 13.30 H INR 1.13 H PTT (Actin FS) Sodium Potassium Chloride Carbon Dioxide Anion Gap BUN Creatinine Est GFR (CKD-EPI)AfAm Est GFR (CKD-EPI)NonAf Random Glucose Calcium Total Bilirubin AST ALT Alkaline Phosphatase Total Protein Albumin Urine HCG, Qual Negative Blood Type B POSITIVE Antibody Screen Negative Crossmatch See Detail ASSESSMENT/PLAN: 38 year old female with a past medical history of iron-deficiency anemia, menorrhagia, and migraine headaches presented to the ED after being told to come by [facility] outpatient offices when she was found to have a low hemoglobin #Symptomatic Anemia: patient's hemoglobin is 6.0, baseline 10-12; likely iron deficiency anemia as it is microcytic/hypochromic -peripheral smear shows severely hypochromic cells with a high distribution width of RBCs of multiple sizes -iron studies should be done, however will do at another time since patient already receiving blood products -continue oral iron, consider adding vitamin C to aid in absorption upon discharge -may benefit from IV iron formulation in the future -repeat hgb in AM after the 2 units are infused #Hypertension: patient is not on medications for hypertension, will monitor while in the hospital -continue to monitor for now #FEN -blood products being given -lytes normal -regular diet #Prophylaxis -SCDs #Disposition -admit med surg - anticipate DC in 1-2 days Visit type - Emergency Visit Emergency Visit: Yes ED Registration Date: 11/16/18 Care time: The patient presented to the Emergency Department on the above date and was hospitalized for further evaluation of their emergent condition. - New Patient This patient is new to me today: Yes Date on this admission: 11/16/18 - Critical Care Critical Care patient: No ATTENDING PHYSICIAN STATEMENT I saw and evaluated the patient. I reviewed the resident's note and discussed the case with the resident. I agree with the resident's findings and plan as documented. SUBJECTIVE: OBJECTIVE: ASSESSMENT AND PLAN:
[2018-11-16 16:09] LABS: ANISOCYTOSIS 2+; OVALOCYTE 1+; PLATELET ESTIMATE NORMAL; TEAR DROP CELLS 1+
--- NOTE | 2018-11-16 16:57 | PN ---
Teaching Attending Note Name of Resident: Vin Ryder ATTENDING PHYSICIAN STATEMENT I saw and evaluated the patient. I reviewed the resident's note and discussed the case with the resident. I agree with the resident's findings and plan as documented. SUBJECTIVE: This is a 38 year old woman with a history of iron-deficiency anemia , menorrhagia, migraine headaches who was advised to come to the ED after being found to be anemic with hemoglobin 6. She reports having a headache that is similar to her typical migraines for the past week. She reports having heavy menses - her last period was on 11/09. She denies abdominal pain, nausea, vomiting, melena, rectal bleeding. OBJECTIVE: Vital Signs Period Temp Pulse Resp BP Sys/Rubalcava Pulse Ox Last 24 Hr 99 F 96-114 20-20 150-165/90-95 99-100 HEART: S1S2, RRR LUNGS: Clear ABDOMEN: Obese, soft, non-tender, non-distended, normal BS EXTREMITIES: No edema Laboratory Tests 11/16/18 11/16/18 11/16/18 12:15 12:15 12:15 WBC 7.5 RBC 4.43 Hgb 6.0 L* Hct 22.2 L MCV 50.2 L MCH 13.5 L D MCHC 26.9 L RDW 22.2 H Plt Count 360 D MPV 8.4 Absolute Neuts (auto) 3.5 Neutrophils % 47.5 D Lymphocytes % 41.2 H D Monocytes % 5.7 Eosinophils % 4.6 H Basophils % 1.0 Nucleated RBC % 1 H Hypochromia 2+ Platelet Estimate Normal Polychromasia 2+ Anisocytosis 2+ Microcytosis 2+ Tear Drop Cells 1+ Ovalocytes 1+ Schistocytes 1+ PT with INR INR PTT (Actin FS) 30.0 Sodium 142 Potassium 4.2 Chloride 106 Carbon Dioxide 29 Anion Gap 7 L BUN 9.4 Creatinine 0.8 Est GFR (CKD-EPI)AfAm 109.93 Est GFR (CKD-EPI)NonAf 94.85 Random Glucose 80 Calcium 8.7 Total Bilirubin 0.3 AST 15 ALT 15 Alkaline Phosphatase 69 Total Protein 7.7 Albumin 3.6 Urine HCG, Qual Blood Type Antibody Screen Crossmatch 11/16/18 11/16/18 11/16/18 12:15 12:15 12:15 WBC RBC Hgb Hct MCV MCH MCHC RDW Plt Count MPV Absolute Neuts (auto) Neutrophils % Lymphocytes % Monocytes % Eosinophils % Basophils % Nucleated RBC % Hypochromia Platelet Estimate Polychromasia Anisocytosis Microcytosis Tear Drop Cells Ovalocytes Schistocytes PT with INR 13.30 H INR 1.13 H PTT (Actin FS) Sodium Potassium Chloride Carbon Dioxide Anion Gap BUN Creatinine Est GFR (CKD-EPI)AfAm Est GFR (CKD-EPI)NonAf Random Glucose Calcium Total Bilirubin AST ALT Alkaline Phosphatase Total Protein Albumin Urine HCG, Qual Negative Blood Type B POSITIVE Antibody Screen Negative Crossmatch See Detail Home Medications Medication Instructions Recorded Ferrous Sulfate 325 mg PO DAILY #30 tablet 01/24/18 ASSESSMENT AND PLAN: This is a 38 year old woman with a history of iron-deficiency anemia, menorrhagia, migraine headaches who presented to the ED because she was found to have hemoglobin of 6. 1. Acute on chronic iron-deficiency anemia secondary to abnormal uterine bleeding - Transfuse 2 units PRBCs - Monitor hemoglobin - Continue ferrous sulfate - If hemoglobin improves appropriately with transfusion, can be discharged with outpatient follow-up by PCP and electronics engineer 2. HTN - Patient denies history of HTN - Monitor BP while in hospital 3. Migraine headaches - Currently no complaints of headache 4. Obesity with BMI 33.2
[2018-11-16 17:32] VITALS: BMI 29.1
[2018-11-16] MEDS ORDERED: PT OWN MED DRAWER 7, Y5N ONE (21:07)
[2018-11-17 06:51] LABS: HEMATOCRIT 30.2 % (32.4-45.2); HEMOGLOBIN 8.9 GM/dL (10.7-15.3); MCHC 29.3 g/dl (32.0-36.0); MEAN CELL VOLUME 57.9 fl (80-96); MEAN PLT VOLUME 8.7 fl (7.5-11.1); PLATELET COUNT 326 K/MM3 (134-434); RBC 5.21 M/mm3 (3.60-5.2); RDW 32.6 % (11.6-15.6); WHITE BLOOD COUNT 9.9 K/mm3 (4.0-10.0)
[2018-11-17] MEDS ORDERED: ACETAMINOPHEN 325 MG TABLET (FP) PO PRN (09:06)
--- NOTE | 2018-11-17 09:17 | DS ---
Physical Exam: SUBJECTIVE: Patient seen and examined OBJECTIVE: Vital Signs Period Temp Pulse Resp BP Sys/Rubalcava Pulse Ox Last 24 Hr 97.8 F-99 F 78-114 16-24 132-165/81-95 97-100 PHYSICAL EXAM GENERAL: The patient is awake, alert, and fully oriented, in no acute distress. LUNGS: Breath sounds equal, clear to auscultation bilaterally, no wheezes, no crackles, no accessory muscle use. HEART: Regular rate and rhythm, S1, S2 without murmur, rub or gallop. ABDOMEN: Soft, nontender, nondistended, normoactive bowel sounds, no guarding, no rebound, no hepatosplenomegaly, no masses. EXTREMITIES: 2+ pulses, warm, well-perfused, no edema. NEUROLOGICAL: Cranial nerves II through XII grossly intact. Normal speech, gait not observed. PSYCH: Normal mood, normal affect. SKIN: Warm, dry, normal turgor, no rashes or lesions noted. LABS Laboratory Results - last 24 hr 11/16/18 11/16/18 11/16/18 12:15 12:15 12:15 WBC 7.5 RBC 4.43 Hgb 6.0 L* Hct 22.2 L MCV 50.2 L MCH 13.5 L D MCHC 26.9 L RDW 22.2 H Plt Count 360 D MPV 8.4 Absolute Neuts (auto) 3.5 Neutrophils % 47.5 D Lymphocytes % 41.2 H D Monocytes % 5.7 Eosinophils % 4.6 H Basophils % 1.0 Nucleated RBC % 1 H Hypochromia 2+ Platelet Estimate Normal Polychromasia 2+ Anisocytosis 2+ Microcytosis 2+ Tear Drop Cells 1+ Ovalocytes 1+ Schistocytes 1+ PT with INR INR PTT (Actin FS) 30.0 Sodium 142 Potassium 4.2 Chloride 106 Carbon Dioxide 29 Anion Gap 7 L BUN 9.4 Creatinine 0.8 Est GFR (CKD-EPI)AfAm 109.93 Est GFR (CKD-EPI)NonAf 94.85 Random Glucose 80 Calcium 8.7 Total Bilirubin 0.3 AST 15 ALT 15 Alkaline Phosphatase 69 Total Protein 7.7 Albumin 3.6 Urine HCG, Qual Blood Type Antibody Screen Crossmatch 11/16/18 11/16/18 11/16/18 12:15 12:15 12:15 WBC RBC Hgb Hct MCV MCH MCHC RDW Plt Count MPV Absolute Neuts (auto) Neutrophils % Lymphocytes % Monocytes % Eosinophils % Basophils % Nucleated RBC % Hypochromia Platelet Estimate Polychromasia Anisocytosis Microcytosis Tear Drop Cells Ovalocytes Schistocytes PT with INR 13.30 H INR 1.13 H PTT (Actin FS) Sodium Potassium Chloride Carbon Dioxide Anion Gap BUN Creatinine Est GFR (CKD-EPI)AfAm Est GFR (CKD-EPI)NonAf Random Glucose Calcium Total Bilirubin AST ALT Alkaline Phosphatase Total Protein Albumin Urine HCG, Qual Negative Blood Type B POSITIVE Antibody Screen Negative Crossmatch See Detail 11/17/18 06:25 WBC 9.9 RBC 5.21 H Hgb 8.9 L Hct 30.2 L D MCV 57.9 L D MCH 17.0 L D MCHC 29.3 L RDW 32.6 H Plt Count 326 MPV 8.7 Absolute Neuts (auto) Neutrophils % Lymphocytes % Monocytes % Eosinophils % Basophils % Nucleated RBC % Hypochromia Platelet Estimate Polychromasia Anisocytosis Microcytosis Tear Drop Cells Ovalocytes Schistocytes PT with INR INR PTT (Actin FS) Sodium Potassium Chloride Carbon Dioxide Anion Gap BUN Creatinine Est GFR (CKD-EPI)AfAm Est GFR (CKD-EPI)NonAf Random Glucose Calcium Total Bilirubin AST ALT Alkaline Phosphatase Total Protein Albumin Urine HCG, Qual Blood Type Antibody Screen Crossmatch HOSPITAL COURSE: Date of Admission:11/16/18 Date of Discharge: 11/17/18 Minutes to complete discharge: 30 Discharge Summary Problems reviewed: Yes Reason For Visit: MENORRHAGIA,ANEMIS,HEADACHE Current Active Problems Migraine headache (Acute) Iron deficiency anemia (Chronic) Menorrhagia (Chronic) Condition: Improved - Instructions Diet, Activity, Other Instructions: You were admitted to [facility] on November 16 after you were found to have anemia with a hemoglobin of 6.0. You were transfused 2 units of blood and your hemoglobin improved to 8.9. Your anemia is likely caused by iron deficiency from heavy menstrual bleeding. You are being discharged home on November 17. You may resume your usual diet and activity. You should continue to take an iron supplement as you were doing before this admission. Please schedule a follow up appointment at the [facility] this week. Referrals: Douglas Case MD [Staff Physician] - 1 Week Disposition: HOME - Home Medications Comprehensive Discharge Medication List: Ambulatory Orders Ferrous Sulfate 325 mg PO DAILY #30 tablet 01/24/18 Acetaminophen [Tylenol .Regular Strength -] 650 mg PO Q4H PRN tablet 11/17/18 Prescription Drug Monitoring Program (I-STOP) results: I-STOP reviewed and no issues identified
[2018-11-17 09:53] VITALS: BP 130/88; PULSE 84; TEMP 98.6
[2018-11-17] MEDS ORDERED: FERROUS SO4 325 MG TABLET (FP) PO SCH (10:00)
--- NOTE | 2018-11-17 11:41 | EKG ---
Test Reason : Blood Pressure : / mmHG Vent. Rate : 096 BPM Atrial Rate : 096 BPM P-R Int : 130 ms QRS Dur : 078 ms QT Int : 340 ms P-R-T Axes : 050 040 017 degrees QTc Int : 429 ms NORMAL SINUS RHYTHM NORMAL ECG NO PREVIOUS ECGS AVAILABLE Confirmed by DEMETRI GONZALEZ MD ([id number]) on 11/17/2018 11:41:15 AM Referred By: Confirmed By:DEMETRI GONZALEZ MD
== END 2018-11-17 12:03 | disposition home or self-care (01) | DRG 663 ==
LOC: JER 10:13 → JERBED 12:57 → J8W 16:59
PROVIDERS: ADMIT Internal Medicine; ATTEND Internal Medicine
PROC: 30233N1 Transfusion of Nonautologous Red Blood Cells into Peripheral Vein, Percutaneous Approach (ICD-10-PCS; principal; 2018-11-16)
DX: D50.0 Iron deficiency anemia secondary to blood loss (chronic) (principal); N92.0 Excessive and frequent menstruation with regular cycle; I10 Essential (primary) hypertension; G43.909 Migraine, unspecified, not intractable, without status migrainosus; E66.8 Other obesity; Z68.33 Body mass index [BMI] 33.0-33.9, adult
CPT/HCPCS: 36415; 36430; 80053; 84703; 85025; 85027; 85610; 85730; 86850; 86900; 86901; 86922; 93005; 93010; 99285-25; J0131; P9038; P9058

== ENCOUNTER → 2019-01-24 | Day surgery (SDC) | payer OTHER | END | disposition home or self-care (01) | LOC: EDSTATUS 01-16 10:00 → JRADUS-SUR 08:48 | PROVIDERS: ATTEND Obstetrics & Gynecology | PROC: BU46YZZ Ultrasonography of Uterus using Other Contrast (ICD-10-PCS; principal; 2019-01-24) | DX: D25.1 Intramural leiomyoma of uterus (principal); N93.9 Abnormal uterine and vaginal bleeding, unspecified | CPT/HCPCS: 58340; 76831; 84703 ==

== ENCOUNTER 2019-01-28 11:24 | Emergency (ER) | payer OTHER ==
[2019-01-28 11:32] VITALS: BMI 34.2
[2019-01-28] MEDS ORDERED: KETOROLAC TROMETHAMINE 60 MG/2 ML VIAL IM ONE (12:07)
[2019-01-28] MEDS ORDERED: ACETAMINOPHEN 500 MG TABLET (FP) PO ONE (12:07)
[2019-01-28] MEDS ORDERED: ACETAMINOPHEN 500 MG TABLET (FP) ONE (12:13)
[2019-01-28] MEDS ORDERED: KETOROLAC TROMETHAMINE 60 MG/2 ML VIAL ONE (12:13)
--- NOTE | 2019-01-28 12:41 | PDOC ---
History of Present Illness - General Chief Complaint: Headache Stated Complaint: HEADACHE/DIZZINESS Time Seen by Provider: 01/28/19 11:50 - History of Present Illness Initial Comments: 01/28/19 12:39 38-year-old female presents for evaluation of headache which started after her menses about a week ago she is had a headache intermittently and this is typical of her headache she usually gets after her menses. She is never been worked up Past History - Past Medical History Allergies/Adverse Reactions: Allergies Allergy/AdvReac Type Severity Reaction Status Date / Time No Known Allergies Allergy Verified 01/28/19 11:32 Home Medications: Ambulatory Orders Ferrous Sulfate 325 mg PO DAILY #30 tablet 01/24/18 Anemia: Yes Asthma: No Cancer: No Cardiac Disorders: No CVA: No COPD: No CHF: No Dementia: No Diabetes: No GI Disorders: No Disorders: No HTN: No Hypercholesterolemia: No Liver Disease: No Seizures: No Thyroid Disease: No - Surgical History Abdominal Surgery: No Appendectomy: No Cardiac Surgery: No Cholecystectomy: No Lung Surgery: No Neurologic Surgery: No Orthopedic Surgery: No - Reproductive History (#): 3 Para: 2 Cervical CA: No Dysfunctional Uterine Bleeding: No Ectopic : No Endometrial CA: No Polycystic Ovaries: No Therapeutic (s) & number: No Tubal Ligation: No Spontaneous : 0 - Psycho Social/Smoking Cessation Hx Smoking Status: No Smoking History: Never smoked Have you smoked in the past 12 months: No Number of Cigarettes Smoked Daily: 0 Hx Alcohol Use: No Drug/Substance Use Hx: No Substance Use Type: None Hx Substance Use Treatment: No Review of Systems - Review of Systems Constitutional: No: Fever Neurological: Yes: Headache *Physical Exam - Vital Signs Last Vital Signs Temp Pulse Resp BP Pulse Ox 98 F 105 H 18 149/77 100 01/28/19 11:29 01/28/19 11:29 01/28/19 11:29 01/28/19 11:29 01/28/19 11:29 - Physical Exam 01/28/19 12:40 GENERAL: The patient is awake, alert, and fully oriented, in no acute distress. HEAD: Normal with no signs of trauma. EYES: sclera anicteric, conjunctiva clear. ENT: Ears normal tympanic membranes normal oropharynx clear uvula midline NECK: Normal range of motion EXTREMITIES: Normal range of motion, no edema. No clubbing or cyanosis. No cords, erythema, or tenderness. NEUROLOGICAL: Cranial nerves II through XII grossly intact. Normal speech, normal gait. PSYCH: Normal mood, normal affect. SKIN: Warm, Dry, normal turgor, no rashes or lesions noted. ED Treatment Course - Medications Given in the ED: ED Medications Discontinued Medications Generic Name Dose Route Start Last Admin Trade Name Ward PRN Reason Stop Dose Admin Acetaminophen 1,000 mg 01/28/19 12:07 01/28/19 12:20 Tylenol - PO 01/28/19 12:08 1,000 mg ONCE ONE Administration Ketorolac Tromethamine 60 mg 01/28/19 12:07 01/28/19 12:20 Toradol Injection - IM 01/28/19 12:08 60 mg ONCE ONE Administration Medical Decision Making - Medical Decision Making 01/28/19 12:40 Headache resolved after treatment and follow-up with neurology 01/28/19 12:41 Patient assures me there is no chance of . Discharge - Discharge Information Problems reviewed: Yes Clinical Impression/Diagnosis: Head ache Condition: Improved Disposition: HOME - Admission No - Follow up/Referral Referrals: Leroy Hallman MD [Staff Physician] - - Patient Discharge Instructions Additional Instructions: Tylenol and Motrin should your headache return. Follow-up with neurology in 2 to 3 days without fail. Return to the emergency room for worsening symptoms. - Post Discharge Activity
[2019-01-28 12:46] VITALS: BP 143/68; PULSE 83; TEMP 98.2
== END 2019-01-28 12:46 | disposition home or self-care (01) ==
LOC: JERFT 11:24
PROC: 3E0233Z Introduction of Anti-inflammatory into Muscle, Percutaneous Approach (ICD-10-PCS; principal; 2019-01-28)
DX: R51 Headache (principal)
CPT/HCPCS: 99282-25

== ENCOUNTER 2019-02-22 14:20 | Inpatient (IN) | payer OTHER ==
--- NOTE | 2019-02-22 14:40 | PDOC ---
History of Present Illness - General Chief Complaint: Headache Stated Complaint: HEADACHE Past History - Past Medical History Allergies/Adverse Reactions: Allergies Allergy/AdvReac Type Severity Reaction Status Date / Time No Known Allergies Allergy Verified 02/22/19 14:33 Home Medications: Ambulatory Orders Ferrous Sulfate 325 mg PO DAILY #30 tablet 01/24/18 Medroxyprogesterone Acetate [Provera -] 1 tab PO DAILY 02/22/19 Anemia: Yes Asthma: No Cancer: No Cardiac Disorders: No CVA: No COPD: No CHF: No Dementia: No Diabetes: No GI Disorders: No Disorders: No HTN: No Hypercholesterolemia: No Liver Disease: No Seizures: No Thyroid Disease: No - Surgical History Abdominal Surgery: No Appendectomy: No Cardiac Surgery: No Cholecystectomy: No Lung Surgery: No Neurologic Surgery: No Orthopedic Surgery: No - Reproductive History (#): 3 Para: 2 Cervical CA: No Dysfunctional Uterine Bleeding: No Ectopic : No Endometrial CA: No Polycystic Ovaries: No Therapeutic (s) & number: No Tubal Ligation: No Spontaneous : 0 - Psycho Social/Smoking Cessation Hx Smoking Status: No Smoking History: Never smoked Have you smoked in the past 12 months: No Number of Cigarettes Smoked Daily: 0 Hx Alcohol Use: No Drug/Substance Use Hx: No Substance Use Type: None Hx Substance Use Treatment: No *Physical Exam - Vital Signs Last Vital Signs Temp Pulse Resp BP Pulse Ox 98.5 F 117 H 20 147/84 100 02/22/19 14:34 02/22/19 14:34 02/22/19 14:34 02/22/19 14:34 02/22/19 14:34 ED Treatment Course - LABORATORY CBC & Chemistry Diagram: 02/23/19 06:15 02/23/19 06:15 Medical Decision Making - Medical Decision Making 02/22/19 14:39 HPI: 38yo F hx iron-deficiency anemia (requiring 2 transfusions, last 11/30) 2/2 menorrhagia 2/2 fibroids (surgery scheduled with Dr Hyatt, on medroxyprogresterone x5 days) and migraine headaches 2/2 anemia/menorrhagia presents from home with 6 days of constant entire head pressure type headache unimproved by tylenol (last yesterday) worse with movement, lightheadedness, NBNB emesis x3, and palpitations with exertion, all since heavy period ended 6 days ago, worsening, consistent with migraine headaches 2/2 anemia. Last took tylenol yesterday, no other meds tried, never seen neuro. Denies trauma, head injury, neck stiffness/pain, fever, chills, fatigue, vertigo, numbness/tingling , weakness, vision changes, shortness of breath, cough, chest pain, leg swelling , abdominal pain, blood in stool, diarrhea, constipation, dysuria, hematuria, confusion, vaginal bleeding, vaginal discharge. ROS: Constitutional: Negative for chills, fever, fatigue, diaphoresis. HENT: Negative for sore throat, rhinorrhea, congestion. Eyes: Negative for visual disturbance. Respiratory: Negative for shortness of breath, cough, and wheezing. Cardiovascular: Positive for palpitations. Negative for chest pain, and leg swelling. Gastrointestinal: Positive for nausea, and vomiting. Negative for abdominal pain , blood in stool, constipation, diarrhea. Genitourinary: Negative for dysuria, flank pain, and hematuria. Musculoskeletal: Negative for myalgias, back pain, and neck pain. Skin: Positive for pale skin. Negative for rash. Neurological: Positive for light-headedness and headaches. Negative for vertigo , syncope, weakness, numbness. Psychiatric/Behavioral: Negative for behavioral problems and confusion. PE: Gen: Alert, NAD, comfortable-appearing. HEENT: PERRL, EOMI, MMM, NCAT. +conjunctival pallor. Sclera are non-icteric. Neck supple. CV: Regular rate and rhythm. No murmurs, rubs, or gallops. PULM: No resp distress. CTAB, no wheezes, rales, or rhonchi. ABD: soft, NT/ND, no rebound tenderness or guarding, no CVA tenderness. BACK: No TTP of c/t/l-spine. No step-offs or deformities. MSK: No bony deformities. 2+ pulses in all extremities. NEURO: AAOx3. PERRL. No gross CN deficits. Strength and sensation grossly intact throughout. EXTREMITIES: No cyanosis. No clubbing. No edema. No calf tenderness. PSYCH: Normal mood and thought pattern. SKIN: Warm and dry. Normal capillary refill. Pale. No rashes. No jaundice. MDM: 38yo F hx iron-deficiency anemia (requiring 2 transfusions, last 11/30) 2/2 menorrhagia 2/2 fibroids (surgery scheduled with Dr Hyatt, on medroxyprogresterone x5 days) and migraine headaches 2/2 anemia/menorrhagia presents from home with 6 days of constant entire head pressure type headache unimproved by tylenol (last yesterday) worse with movement, lightheadedness, NBNB emesis x3, and palpitations with exertion, all since heavy period ended 6 days ago, worsening, consistent with migraine headaches 2/2 anemia. Tachycardic 117, other VSS, afebrile, pale skin and conjunctivae, neurologically intact. Ddx: anemia, metabolic derangement, migraine headache, pressure headache. Low concern arrhythmia, ACS/[place], . No F/C/D/C/myalgias/sore throat/ rhinorrhea/cough indicative of URI or GI infection. No fever, neck stiffness, sudden onset headache, neurologic deficit, or changes in normal migraine headache concerning for ICH, SAH, or meningitis. -Reglan,Tylenol,IVF -EKG -CBC,CMP,Coags,Mg,Phos,Cardiac profile,T&S,HCG -Dispo: pending w/u 02/22/19 16:05 EKG reviewed: Labs reviewed. Hb 4.5 -2U pRBCs ordered -blood transfusion consent obtained -Admit 02/22/19 16:40 Signed out to admitting team. Discharge - Discharge Information Problems reviewed: Yes Clinical Impression/Diagnosis: Iron deficiency anemia Condition: Stable - Admission Yes - Follow up/Referral - Patient Discharge Instructions - Post Discharge Activity
[2019-02-22] MEDS ORDERED: ACETAMINOPHEN 1000 MG/100 ML VIAL (NON FORMULARY) IVPB ONE (14:58)
[2019-02-22] MEDS ORDERED: SODIUM CHLORIDE 0.9% 500 ML INFUS.BAG IV ONE (14:58)
[2019-02-22] MEDS ORDERED: METOCLOPRAMIDE HCL INJECTION 10 MG/2 ML VIAL IVPB ONE (15:00)
[2019-02-22] MEDS ORDERED: METOCLOPRAMIDE HCL INJECTION 10 MG/2 ML VIAL ONE (15:07)
[2019-02-22] MEDS ORDERED: ACETAMINOPHEN INJECTION 100 ML IVPB ONE (15:08)
[2019-02-22 15:36] LABS: BASO % 0.8 % (0-2.0); EOS % 3.7 % (0-4.5); HEMATOCRIT 16.9 % (32.4-45.2); LYMPH % 20.4 % (8-40); MCHC 26.9 g/dl (32.0-36.0); MEAN CELL VOLUME 54.6 fl (80-96); MEAN PLT VOLUME 8.6 fl (7.5-11.1); MONO % 6.6 % (3.8-10.2); NEUT % 68.5 % (42.8-82.8); PLATELET COUNT 407 K/MM3 (134-434); RDW 24.5 % (11.6-15.6); WHITE BLOOD COUNT 8.8 K/mm3 (4.0-10.0)
[2019-02-22 16:01] LABS: ALBUMIN 3.5 g/dl (3.4-5.0); ALK PHOS 58 U/L (45-117); ANION GAP 7 MMOL/L (8-16); BILIRUBIN,TOTAL 0.4 mg/dL (0.2-1); BLOOD UREA NITROGEN 9.8 mg/dL (7-18); CALCIUM 8.8 mg/dL (8.5-10.1); CHLORIDE 108 mmol/L (98-107); CO2 24 mmol/L (21-32); CREATININE 0.7 mg/dL (0.55-1.3); GLUCOSE,RANDOM 90 mg/dL (74-106); MAGNESIUM 2.4 mg/dL (1.8-2.4); MCH 14.7 pg (25.7-33.7); PHOSPHOROUS 3.7 mg/dL (2.5-4.9); SGOT/AST 11 U/L (15-37); SGPT/ALT 15 U/L (13-61); SODIUM 140 mmol/L (136-145); TOT PROT 7.2 g/dl (6.4-8.2)
[2019-02-22 16:02] LABS: HEMOGLOBIN 4.5 GM/dL (10.7-15.3)
[2019-02-22 16:03] LABS: INR 1.06 (0.83-1.09); PROTHROMBIN TIME (PATIENT) 12.5 SEC (9.7-13.0)
[2019-02-22 16:05] LABS: ACTIVATED PTT 29.4 SECONDS (25.2-36.5)
[2019-02-22 16:17] LABS: URINE APPEARANCE CLEAR; URINE BILIRUBIN NEGATIVE (NEGATIVE); URINE COLOR YELLOW; URINE GLUCOSE (UA) NEGATIVE (NEGATIVE); URINE KETONE NEGATIVE (NEGATIVE); URINE LEUK ESTERASE NEGATIVE (NEGATIVE); URINE NITRITE NEGATIVE (NEGATIVE); URINE PROTEIN NEGATIVE (NEGATIVE); URINE UROBILINOGEN 0.2 mg/dL (0.2-1.0)
--- NOTE | 2019-02-22 16:19 | PDOC ---
Documentation entered by Tasha Duron SCRIBE, acting as scribe for Emily Quinonez MD. Emily Quinonez MD: This documentation has been prepared by the Oliverio guerrero Xhesika, SCRIBE, under my direction and personally reviewed by me in its entirety. I confirm that the documentation accurately reflects all work, treatment, procedures, and medical decision making performed by me. Attending Attestation - Resident Resident Name: Vivian James - HPI HPI: 02/22/19 15:30 The patient is a 38 year old female with a significant PMH of iron deficiency anemia ( not compliant with iron pills), menorrhagia, and HAs who presents to the emergency department for headache and 1 episode of vomiting today. The patient states she always gets headaches after her menstrual period. Pt states her LMP was 02/17/18. The patient denies chest pain, shortness of breath, and dizziness. Denies fever , chills, cough, nausea, vomiting, diarrhea and constipation. Denies dysuria, frequency, urgency and hematuria. Allergies: NKDA - Physicial Exam PE: 02/22/19 15:42 GENERAL: Awake, alert, and fully oriented, +mildly uncomfortable HEAD: No signs of trauma LUNGS: Breath sounds equal, clear to auscultation bilaterally. No wheezes, and no crackles HEART: Regular rate and rhythm, normal S1 and S2, no murmurs, rubs or gallops ABDOMEN: Soft, nontender, normoactive bowel sounds. No guarding, no rebound. No masses EXTREMITIES: Normal range of motion, no edema. No clubbing or cyanosis. No cords, erythema, or tenderness NEUROLOGICAL: Cranial nerves II through XII grossly intact. SKIN: Warm, Dry, normal turgor, no rashes or lesions noted. - Medical Decision Making 02/22/19 16:15 Pt presents to the ED complaining of diffuse frontal headache consistent with prior headaches secondary to anemia. History of severe anemia secondary to DUB , non compliant with iron pills. Labs show severe anemia with hgb of 4.5. No complaints of active bleeding. Will transfuse 2 units and admit to medicine.
[2019-02-22 16:37] LABS: ANISOCYTOSIS 3+; OVALOCYTE 1+; PLATELET ESTIMATE ADEQUATE; TARGET CELLS 2+
--- NOTE | 2019-02-22 18:14 | HP ---
CHIEF COMPLAINT: dizziness BORDERER: Lucy HISTORY OF PRESENT ILLNESS: Ms. Perez is a 38y/o female with history of menorrhagia and uterine fibroids who presents with dizziness that started today. She reports having periods that are heavy and 10-15 days in length. She was started on medroxyprogesterone about [address] Ayala and her period stopped 3-4 days later. She began having a frontal headache a few days ago and became increasingly weak and increased JAUREGUI. She denies chest pain or palpitations. Today she began to feel dizzy so presented to the ED. She also vomited twice today. No diarrhea. She is scheduled for fibroid removal on 03/04/19. 5 para 4. Mother has hx of uterine fibroids. ER course was notable for: (1) Hb 4.5- 2 units PRBCs PAST MEDICAL HISTORY: uterine fibroids PAST SURGICAL HISTORY: 2 c-sections Social History: Smoking: denies Alcohol: social Drugs: denies Allergies No Known Allergies Allergy (Verified 02/22/19 14:33) HOME MEDICATIONS: Home Medications Medication Instructions Recorded Ferrous Sulfate 325 mg PO DAILY #30 tablet 01/24/18 Medroxyprogesterone Acetate 1 tab PO DAILY 02/22/19 [Provera -] REVIEW OF SYSTEMS see HPI PHYSICAL EXAMINATION Vital Signs - 24 hr 02/22/19 14:34 Temperature 98.5 F Pulse Rate 117 H Respiratory 20 Rate Blood Pressure 147/84 O2 Sat by Pulse 100 Oximetry (%) GENERAL: Awake, alert, and fully oriented, in no acute distress. HEAD: Normal with no signs of trauma. EYES: Pupils equal, round and reactive to light, extraocular movements intact, sclera anicteric, conjunctiva clear. Periorbital dark circles. EARS, NOSE, THROAT: Ears normal, nares patent. Moist mucous membranes. NECK: Normal range of motion, supple LUNGS: Clear to auscultation bilaterally. HEART: Regular rate and rhythm, 3/6 systolic murmur ABDOMEN: Mild distention, lower abdominal tenderness, normoactive bowel sounds, no guarding, no rebound, no masses. MUSCULOSKELETAL: Normal range of motion at all joints. UPPER EXTREMITIES: Warm, well-perfused. No peripheral edema. LOWER EXTREMITIES: Warm, well-perfused. No peripheral edema. NEUROLOGICAL: Cranial nerves II-XII intact. Normal speech. PSYCHIATRIC: Cooperative. Good eye contact. Appropriate mood and affect. SKIN: Warm, dry, normal turgor Laboratory Results - last 24 hr 02/22/19 02/22/19 02/22/19 15:15 15:15 15:15 WBC 8.8 RBC 3.10 L Hgb 4.5 L* Hct 16.9 L D MCV 54.6 L MCH 14.7 L D MCHC 26.9 L RDW 24.5 H Plt Count 407 D MPV 8.6 Absolute Neuts (auto) 6.0 Neutrophils % 68.5 D Lymphocytes % 20.4 D Monocytes % 6.6 Eosinophils % 3.7 Basophils % 0.8 Nucleated RBC % 1 H Hypochromia 3+ Platelet Estimate Adequate Platelet Comment No clumping noted Polychromasia 2+ Anisocytosis 3+ Microcytosis 2+ Target Cells 2+ Ovalocytes 1+ PT with INR 12.50 INR 1.06 PTT (Actin FS) 29.4 Sodium Potassium Chloride Carbon Dioxide Anion Gap BUN Creatinine Est GFR (CKD-EPI)AfAm Est GFR (CKD-EPI)NonAf Random Glucose Calcium Phosphorus Magnesium Total Bilirubin AST ALT Alkaline Phosphatase Creatine Kinase Troponin I Total Protein Albumin TSH Beta HCG, Quant < 1.0 Urine Color Urine Appearance Urine pH Ur Specific [place] Urine Protein Urine Glucose (UA) Urine Ketones Urine Blood Urine Nitrite Urine Bilirubin Urine Urobilinogen Ur Leukocyte Esterase Blood Type Antibody Screen Crossmatch 02/22/19 02/22/19 02/22/19 15:15 15:15 16:00 WBC RBC Hgb Hct MCV MCH MCHC RDW Plt Count MPV Absolute Neuts (auto) Neutrophils % Lymphocytes % Monocytes % Eosinophils % Basophils % Nucleated RBC % Hypochromia Platelet Estimate Platelet Comment Polychromasia Anisocytosis Microcytosis Target Cells Ovalocytes PT with INR INR PTT (Actin FS) Sodium 140 Potassium 4.0 Chloride 108 H Carbon Dioxide 24 Anion Gap 7 L BUN 9.8 Creatinine 0.7 Est GFR (CKD-EPI)AfAm 129.19 Est GFR (CKD-EPI)NonAf 111.47 Random Glucose 90 Calcium 8.8 Phosphorus 3.7 Magnesium 2.4 Total Bilirubin 0.4 AST 11 L ALT 15 Alkaline Phosphatase 58 Creatine Kinase 43 Troponin I < 0.02 Total Protein 7.2 Albumin 3.5 TSH 2.79 Beta HCG, Quant Urine Color Yellow Urine Appearance Clear Urine pH 7.0 Ur Specific [place] 1.006 L Urine Protein Negative Urine Glucose (UA) Negative Urine Ketones Negative Urine Blood Negative Urine Nitrite Negative Urine Bilirubin Negative Urine Urobilinogen 0.2 Ur Leukocyte Esterase Negative Blood Type B POSITIVE Antibody Screen Negative Crossmatch See Detail ASSESSMENT/PLAN: Ms. Perez is a 38y/o female with history of menorrhagia and uterine fibroids who presents with dizziness, headache, and weakness following heavy period. She was placed on medroxyprogesterone for relief but pt presented with anemia. #acute on chronic iron-deficiency anemia 2/2 menorrhagia -Hb 4.5 at presentation -2 units PRBCs -repeat Hb 7.4, and pt reports improvement in MITCHELL and dizziness -continue medroxyprogesterone -IV fluids -iron supplementation -keep surgical appt on the DVT Ppx SCDs FEN NS 75mL/hr monitor labs regular diet dispo if Hb remains stable, possible d/c tomorrow Visit type - Emergency Visit Emergency Visit: Yes ED Registration Date: 02/22/19 Care time: The patient presented to the Emergency Department on the above date and was hospitalized for further evaluation of their emergent condition. - New Patient This patient is new to me today: Yes Date on this admission: 02/23/19 - Critical Care Critical Care patient: No ATTENDING PHYSICIAN STATEMENT I saw and evaluated the patient. I reviewed the resident's note and discussed the case with the resident. I agree with the resident's findings and plan as documented. SUBJECTIVE: OBJECTIVE: ASSESSMENT AND PLAN:
[2019-02-22] MEDS ORDERED: SODIUM CHLORIDE 1,000 ML IV SCH (18:15)
--- NOTE | 2019-02-22 18:21 | PN ---
Teaching Attending Note Name of Resident: Beverly Melgar ATTENDING PHYSICIAN STATEMENT I saw and evaluated the patient. I reviewed the resident's note and discussed the case with the resident. I agree with the resident's findings and plan as documented. SUBJECTIVE: CC: fatigue and MITCHELL. HPI: 38 y/o lady with h/o iron def anemia due to heavy menses 2/2 fibroids, and HAs who presented with fatigue, and MITCHELL . She has heavy menses for > 1 year due to uterine fibroids. she has irregular periods, with prolonged bleeding ( 10-15 days ). Her last period ended 5 days ago, which was 3-4 days after her SLOT SHIFT MANAGER, prescribed her Medroxyprogesterone 10 mg daily. she is supposed to be on it till 03/04 when she will get hysterectomy with Dr. Hernandez. she has been having MITCHELL x 1 week , frontal , no visual changes, focal weakness or numbness/tingling. She denies dysuria, . felt dizzy and JAUREGUI but no CP. She is supposed ot be on iron but she does not take it. She deos not remember her PCP name and she sees an PAINTER DRUM. IN ER, she was found to have Hb of 4.5. she was started on RBc transfusion and now her MITCHELL has resolved and does not feel dizzy any more. OBJECTIVE: NAD, awake, alert, oriented. cooperative . MMM, no LAP in neck , pale MM, pale conjunctivae, EOMI, dark circles around her eyes CV: RRR, 2/6 SM at LUSB . Lungs: CTAB Abd: soft, NT, ND , NL BS. protuberant. Ext : No edema or erythema. Neuro: EOMI, round equal pupils, reactive to light . tongue at mid line. strength 5/5 in upper and lower extremities proximally and distally. reflexes 2 + biceps , 1+ knee jerk b/l ASSESSMENT AND PLAN: 38 y/o lady with h/o iron def anemia due to heavy menses 2/2 fibroids, and HAs who presented with fatigue, and MITCHELL .She was found to have anemia with Hb of 4.5 1- Acute on chronic severe blood loss anemia: due to vaginal bleed - transfuse 2 units of RBC. repeat HB and transfuse as needed for hb < 7 - cont medroxyprogesterone - cont iron supp. patient is advised to comply with them. - advised to follow up with her SLOT SHIFT MANAGER for hysterectomy as planned on 03/04. - she was advised to follow up with heme ( will be referred ) for IV iron infusion - gentle hydration 2- MITCHELL: due to anemia. Now resolved with blood transfusion - cont gentle hydration and blood transfusion - tylenol as needed 3- Heart murmur. expect due to anemia. - out pt echo 4- slightly elevated bP . SBP in 140s at presentation. now 131. - she was advised to follow with PCP for BP checks and evaluation for HTN 5- DVT PX: SCDs given her anemia Possible dc tomorrow depends on HB level .
[2019-02-22] MEDS ORDERED: DOCUSATE SODIUM 100 MG CAPSULE (FP) PO PRN (18:35)
[2019-02-22] MEDS: ACETAMINOPHEN 325 MG TABLET (FP) PO PRN (23:18)
[2019-02-22 23:51] VITALS: BMI 34.3
[2019-02-23 01:18] LABS: HEMATOCRIT 24.1 % (32.4-45.2); HEMOGLOBIN 7.4 GM/dL (10.7-15.3); MCHC 30.5 g/dl (32.0-36.0); MEAN CELL VOLUME 64.9 fl (80-96); MEAN PLT VOLUME 8.6 fl (7.5-11.1); PLATELET COUNT 337 K/MM3 (134-434); RBC 3.72 M/mm3 (3.60-5.2); RDW 35.3 % (11.6-15.6); WHITE BLOOD COUNT 8.6 K/mm3 (4.0-10.0)
[2019-02-23 01:21] LABS: MCH 19.8 pg (25.7-33.7)
[2019-02-23 06:44] LABS: HEMATOCRIT 23.7 % (32.4-45.2); HEMOGLOBIN 7.6 GM/dL (10.7-15.3); MCH 20.5 pg (25.7-33.7); MEAN CELL VOLUME 63.9 fl (80-96); MEAN PLT VOLUME 8.6 fl (7.5-11.1); PLATELET COUNT 370 K/MM3 (134-434); RDW 35.3 % (11.6-15.6); WHITE BLOOD COUNT 7.6 K/mm3 (4.0-10.0)
[2019-02-23 07:00] LABS: CALCIUM 8.4 mg/dL (8.5-10.1); CREATININE 0.7 mg/dL (0.55-1.3); MAGNESIUM 2.3 mg/dL (1.8-2.4); POTASSIUM 3.7 mmol/L (3.5-5.1)
[2019-02-23] MEDS ORDERED: PT OWN MED DRAWER 7, Y5N ONE ×2 (08:58→10:44)
[2019-02-23] MEDS: FERROUS SO4 325 MG TABLET (FP) PO SCH ×2 (09:06→16:37)
[2019-02-23] MEDS ORDERED: PATIENT'S OWN MEDICATION (NON-FORMULARY) (Ferrous Sulfate [Ferrous Sulfate] 325 MG) PO SCH (10:00)
[2019-02-23] MEDS ORDERED: FERROUS SO4 325 MG TABLET (FP) PO SCH (10:00)
[2019-02-23] MEDS: ACETAMINOPHEN 325 MG TABLET (FP) PO PRN (10:37)
--- NOTE | 2019-02-23 13:36 | EKG ---
Test Reason : Blood Pressure : / mmHG Vent. Rate : 099 BPM Atrial Rate : 099 BPM P-R Int : 132 ms QRS Dur : 076 ms QT Int : 350 ms P-R-T Axes : 046 029 017 degrees QTc Int : 449 ms NORMAL SINUS RHYTHM CANNOT RULE OUT ANTERIOR INFARCT , AGE UNDETERMINED ABNORMAL ECG WHEN COMPARED WITH ECG OF 16-NOV-2018 12:14, NO SIGNIFICANT CHANGE WAS FOUND Confirmed by SOHA MOON MD ([id number]) on 02/23/2019 1:36:18 PM Referred By: Confirmed By:SOHA MOON MD
--- NOTE | 2019-02-23 19:18 | DS ---
Physical Examination Vital Signs: Vital Signs Temperature 98.3 F 02/23/19 18:06 Pulse Rate 90 02/23/19 18:06 Respiratory Rate 18 02/23/19 18:06 Blood Pressure 142/94 02/23/19 18:06 O2 Sat by Pulse Oximetry (%) 98 02/23/19 09:00 Findings/Remarks: no pain , no dizziness, no fever or chills. she feels stronger PE: NAD, awake, alert, oriented. cooperative . MMM, no LAP in neck , pale MM, pale conjunctivae, EOMI, dark circles around her eyes. CV: RRR, 2/6 SM at LUSB . Lungs: CTAB Abd: soft, NT, ND , NL BS. protuberant. Ext : No edema or erythema. Labs: CBC, BMP 02/23/19 06:15 02/23/19 06:15 Discharge Summary Problems reviewed: Yes Reason For Visit: IRON DIFICIENCY ANEMIA Current Active Problems Iron deficiency anemia (Chronic) Hospital Course: 38 y/o lady with h/o iron def anemia due to heavy menses 2/2 fibroids, and HAs who presented with fatigue, and MITCHELL .She was found to have anemia with Hb of 4.5 she was diagnosed with Acute on chronic severe blood loss anemia, due to vaginal bleed she was transfused RBC, and her HB improved to 7.7. she felt better, and all her sx including the MITCHELL resolved. she was advised to comply withher po irion but she can't toelrate it. She was referrred to heme/onc fro iron transfusion protocol. she is to cont f/u with her machine leather trimmer for the planned hysterectomy on 03/04. she is to cont her medroxyprogesterone -she has a heart murmur and this is thought to be due to anemia. she was advised to follow with PCP for an echo and also to follow up onher BP as it was slightly elevated here dc time 30 min Condition: Improved - Instructions Diet, Activity, Other Instructions: - you received blood transfusion and your hemoglobin improved. - please follow with your sweatband flanger for the plannd sx - continue your home meds - follow up with the dedicated driver: Dr. Nuñez to discuss iron transfusion protocol. - do not drive due to the low hb , until you fell well - ask your primary doctor to order an echo due to a heart murmur - please follow with your primary MD for regular check up on your blood pressure Referrals: Macario Winslow [Primary Care Provider] - Savannah Aguilar MD [Staff Physician] - 2 Weeks Disposition: HOME - Home Medications Comprehensive Discharge Medication List: Ambulatory Orders Medroxyprogesterone Acetate [Provera -] 1 tab PO DAILY 02/22/19 Ferrous Sulfate 325 mg PO TID #30 tablet 02/23/19 This patient is new to me today: No Emergency Visit: Yes ED Registration Date: 02/22/19 Care time: The patient presented to the Emergency Department on the above date and was hospitalized for further evaluation of their emergent condition. Critical Care patient: No - Discharge Referral Referred to [facility] No
[2019-02-23 19:56] VITALS: BP 148/94; PULSE 87; TEMP 98.7
== END 2019-02-23 19:58 | disposition home or self-care (01) | DRG 532 ==
LOC: JER 14:20 → INTOOBSV 16:08 → JERBED 16:08 → OBSVTOIN 18:07 → J7W 23:12
PROVIDERS: ADMIT Internal Medicine; ATTEND Internal Medicine
PROC: 30233N1 Transfusion of Nonautologous Red Blood Cells into Peripheral Vein, Percutaneous Approach (ICD-10-PCS; principal; 2019-02-22)
DX: N92.0 Excessive and frequent menstruation with regular cycle (principal); D62 Acute posthemorrhagic anemia; R01.1 Cardiac murmur, unspecified; D50.9 Iron deficiency anemia, unspecified; D25.9 Leiomyoma of uterus, unspecified; G43.829 Menstrual migraine, not intractable, without status migrainosus
CPT/HCPCS: 36415; 36430; 80048; 80053; 81003; 82550; 83735; 84100; 84443; 84484; 84702; 85025; 85027; 85610; 85730; 86850; 86900; 86901; 86922; 93005; 93010; 99285-25; G0378; J0131; J7030; P9058

== ENCOUNTER 2021-09-11 22:54 | Observation (INO) | payer OTHER ==
[2021-09-11 23:09] VITALS: BMI 39.0
[2021-09-11] MEDS ORDERED: SODIUM CHLORIDE 0.9% 500 ML INFUS.BAG IV ONE (23:43)
[2021-09-12 00:45] LABS: VENOUS BASE EXCESS -4.1 mmol/L (-2-2); VENOUS O2 SATURATION 71.7 % (70-80); VENOUS PH 7.367 (7.310-7.410)
[2021-09-12 00:47] LABS: EOS % 0.6 % (0-4.5); HEMATOCRIT 24.4 % (32.4-45.2); LYMPH % 20.3 % (8-40); MCHC 28.5 g/dl (32.0-36.0); MEAN CELL VOLUME 53.2 fl (80-96); MEAN PLT VOLUME 8.4 fl (7.5-11.1); MONO % 9.1 % (3.8-10.2); PLATELET COUNT 216 10^3/uL (134-434); RBC 4.58 M/mm3 (3.60-5.2)
[2021-09-12 00:50] LABS: MCH 15.2 pg (25.7-33.7)
[2021-09-12 00:51] LABS: HEMOGLOBIN 6.9 GM/dL (10.7-15.3)
[2021-09-12 01:01] LABS: CHLORIDE 100 mmol/L (98-107); SODIUM 135 mmol/L (136-145)
[2021-09-12 01:03] LABS: CALCIUM 8.6 mg/dL (8.5-10.1)
[2021-09-12 01:04] LABS: ALBUMIN 3.2 g/dl (3.4-5.0); ANION GAP 12 MMOL/L (8-16); CO2 23 mmol/L (21-32); MAGNESIUM 1.8 mg/dL (1.8-2.4)
[2021-09-12 01:06] LABS: CREATININE 0.9 mg/dL (0.55-1.3)
[2021-09-12 01:07] LABS: PHOSPHOROUS 2.6 mg/dL (2.5-4.9); SGOT/AST 6 U/L (15-37); SGPT/ALT 11 U/L (13-61)
[2021-09-12 01:08] LABS: BILIRUBIN,TOTAL 0.3 mg/dL (0.2-1); TOT PROT 7.1 g/dl (6.4-8.2)
[2021-09-12 01:09] LABS: ALK PHOS 136 U/L (45-117)
[2021-09-12 01:22] LABS: GLUCOSE,RANDOM 411 mg/dL (74-106)
[2021-09-12 02:23] LABS: EPI CELLS 31 /uL (0-25.1); HCG,QUALITATIVE URINE Negative; HYALINE CASTS 0 /uL (0-3.1); PH,URINE 5.5 (5.0-8.0); URINE APPEARANCE CLEAR; URINE BACTERIA 407 /uL (0-1359); URINE BILIRUBIN NEGATIVE (NEGATIVE); URINE COLOR YELLOW; URINE GLUCOSE (UA) 3+ (NEGATIVE); URINE KETONE 3+ (NEGATIVE); URINE LEUK ESTERASE NEGATIVE (NEGATIVE); URINE NITRITE NEGATIVE (NEGATIVE); URINE PROTEIN NEGATIVE (NEGATIVE); URINE RBC 31 /uL (0-23.9); URINE UROBILINOGEN 0.2 mg/dL (0.2-1.0); URINE WBC 52 /uL (0-25.8)
[2021-09-12 03:26] LABS: ANISOCYTOSIS 2+; MACROCYTOSIS 0; ROULEAU 1+
[2021-09-12 05:50] LABS: CHOLESTEROL 127 mg/dL (50-200); IRON SERUM 11 ug/dL (50-175); TOTAL IRON BINDING CAPACITY 375 ug/dL (250-450); TRIGLYCERIDES 106 mg/dL (0-150)
[2021-09-12 05:51] LABS: LDL CHOLESTEROL (ONLY SJRH) 85 mg/dL (5-100)
[2021-09-12 05:52] LABS: HDL CHOLESTEROL 31 mg/dL (40-60)
[2021-09-12 05:55] LABS: LDH 130 U/L (84-246)
[2021-09-12 06:17] LABS: RETICULOCYTES 2.03 % (0.5-1.5)
[2021-09-12] MEDS: INSULIN SLIDING SCALE (NOVOLOG) 1 VIAL SQ SCH ×3 (06:32→17:24)
[2021-09-12] MEDS: metFORMIN HCL 500 MG TABLET (FP) PO SCH ×2 (06:32→17:31)
[2021-09-12 12:11] LABS: ALBUMIN 3.2 g/dl (3.4-5.0); BILIRUBIN,TOTAL 0.6 mg/dL (0.2-1); BLOOD UREA NITROGEN 6.2 mg/dL (7-18); CALCIUM 8.3 mg/dL (8.5-10.1); CREATININE 0.6 mg/dL (0.55-1.3); MAGNESIUM 1.9 mg/dL (1.8-2.4); TOT PROT 7.1 g/dl (6.4-8.2)
[2021-09-12] MEDS ORDERED: POTASSIUM CHLORIDE TABS 20 MEQ TABLET.ER (FP) PO ONE (12:32)
[2021-09-12 13:18] VITALS: RESP 18
[2021-09-12 15:00] LABS: EOS % 2.8 % (0-4.5); HEMATOCRIT 26.7 % (32.4-45.2); LYMPH % 19.7 % (8-40); MEAN CELL VOLUME 56.3 fl (80-96); MEAN PLT VOLUME 8.4 fl (7.5-11.1); MONO % 8.9 % (3.8-10.2); NEUT % 67.6 % (42.8-82.8); PLATELET COUNT 176 10^3/uL (134-434); RBC 4.73 M/mm3 (3.60-5.2); WHITE BLOOD COUNT 6.2 K/mm3 (4.0-10.0)
[2021-09-12 15:01] LABS: MCH 16.9 pg (25.7-33.7)
[2021-09-12 15:24] LABS: PLATELET ESTIMATE ADEQUATE
[2021-09-12 18:27] VITALS: BP 131/91; PULSE 89; TEMP 97.8
[2021-09-12] MEDS ORDERED: LISINOPRIL 20 MG TABLET PO SCH (22:00)
== END 2021-09-12 18:16 | disposition home or self-care (01) ==
LOC: JER 22:54 → INTOOBSV 09-12 01:16 → JERBED 09-12 01:16 → UNDOADMOB 09-12 01:16 → J5S 09-12 05:52 → JERBED 09-12 05:52 → J5S 09-12 11:17
PROVIDERS: ADMIT Internal Medicine; ATTEND Nurse Practitioner Acute Care
PROC: 30233N1 Transfusion of Nonautologous Red Blood Cells into Peripheral Vein, Percutaneous Approach (ICD-10-PCS; principal; 2021-09-12)
PROC: 3E013VG Introduction of Insulin into Subcutaneous Tissue, Percutaneous Approach (ICD-10-PCS; 2021-09-12)
DX: D50.9 Iron deficiency anemia, unspecified (principal); E11.65 Type 2 diabetes mellitus with hyperglycemia; I10 Essential (primary) hypertension; E66.9 Obesity, unspecified; Z68.33 Body mass index [BMI] 33.0-33.9, adult; Z29.8 Encounter for other specified prophylactic measures
CPT/HCPCS: 36415; 36430; 71045-TC-FY; 80053; 80061; 81003; 82010; 82728; 82803; 82962; 83036; 83540; 83550; 83615; 83735; 84100; 84439; 84443; 84484; 84703; 85025; 85045; 86850; 86900; 86901; 86922; 87086; 93005; 93010; 96372; 99291; C9803-CS; G0378; P9058; U0003; U0005

== ENCOUNTER 2021-12-03 21:25 | Observation (INO) | payer OTHER ==
[2021-12-03 22:30] LABS: EOS % 3.2 % (0-4.5); HEMATOCRIT 21.5 % (32.4-45.2); LYMPH % 25.9 % (8-40); MCHC 29.4 g/dl (32.0-36.0); MEAN CELL VOLUME 52.6 fl (80-96); MEAN PLT VOLUME 8.7 fl (7.5-11.1); MONO % 6.1 % (3.8-10.2); NEUT % 63.8 % (42.8-82.8); PLATELET COUNT 395 10^3/uL (134-434); RBC 4.09 M/mm3 (3.60-5.2); RDW 19.4 % (11.6-15.6); WHITE BLOOD COUNT 8.9 K/mm3 (4.0-10.0)
[2021-12-03 22:31] LABS: MCH 15.5 pg (25.7-33.7)
[2021-12-03 22:32] LABS: HEMOGLOBIN 6.3 GM/dL (10.7-15.3)
[2021-12-03 22:46] LABS: ALBUMIN 3.5 g/dl (3.4-5.0); BLOOD UREA NITROGEN 11.5 mg/dL (7-18)
[2021-12-03 22:49] LABS: CREATININE 0.8 mg/dL (0.55-1.3)
[2021-12-03 22:50] LABS: BILIRUBIN,TOTAL 0.2 mg/dL (0.2-1)
[2021-12-03 22:52] LABS: TOT PROT 7.4 g/dl (6.4-8.2)
[2021-12-03 22:53] LABS: ANISOCYTOSIS 3+; MACROCYTOSIS 0; OVALOCYTE 1+; TARGET CELLS 2+; TEAR DROP CELLS 2+
[2021-12-04] MEDS ORDERED: LISINOPRIL 20 MG TABLET PO SCH (01:02)
[2021-12-04] MEDS ORDERED: ACETAMINOPHEN 325 MG TABLET (FP) PO PRN (01:23)
[2021-12-04] MEDS ORDERED: LISINOPRIL 20 MG TABLET ONE (02:03)
[2021-12-04 06:23] VITALS: BMI 31.2
[2021-12-04] MEDS: INSULIN SLIDING SCALE (NOVOLOG) 1 VIAL SQ SCH ×3 (07:57→17:06)
[2021-12-04 09:00] VITALS: RESP 20
[2021-12-04] MEDS ORDERED: IRON SUCROSE INJECTION 200 MG in SODIUM CHLORIDE 90 ML IVPB ONE (09:00)
[2021-12-04 09:49] LABS: ALBUMIN 3.7 g/dl (3.4-5.0); CALCIUM 9.3 mg/dL (8.5-10.1); MAGNESIUM 2.3 mg/dL (1.8-2.4)
[2021-12-04 09:51] LABS: BLOOD UREA NITROGEN 7.9 mg/dL (7-18)
[2021-12-04 09:53] LABS: CREATININE 0.7 mg/dL (0.55-1.3); PHOSPHOROUS 3.7 mg/dL (2.5-4.9)
[2021-12-04 09:55] LABS: TOT PROT 7.8 g/dl (6.4-8.2)
[2021-12-04] MEDS ORDERED: ENOXAPARIN NA (PORCINE) 40 MG/0.4 ML DISP.SYRIN SQ SCH (10:00)
[2021-12-04 11:15] LABS: BASO % 0.4 % (0-2.0); EOS % 2.6 % (0-4.5); HEMOGLOBIN 8.5 GM/dL (10.7-15.3); LYMPH % 21.7 % (8-40); MCHC 30.5 g/dl (32.0-36.0); MEAN PLT VOLUME 8.4 fl (7.5-11.1); MONO % 5.2 % (3.8-10.2); NEUT % 70.1 % (42.8-82.8); PLATELET COUNT 421 10^3/uL (134-434); RBC 4.97 M/mm3 (3.60-5.2); RDW 20.2 % (11.6-15.6); WHITE BLOOD COUNT 9.3 K/mm3 (4.0-10.0)
[2021-12-04 11:19] LABS: MCH 17.2 pg (25.7-33.7); MEAN CELL VOLUME 56.3 fl (80-96)
[2021-12-04] MEDS ORDERED: LISINOPRIL 20 MG TABLET PO ONE (15:45)
[2021-12-04 16:01] VITALS: BP 129/80; PULSE 84; TEMP 98.4
[2021-12-04] MEDS ORDERED: FERROUS SO4 325 MG TABLET (FP) PO SCH (17:30)
[2021-12-04] MEDS ORDERED: FAMOTIDINE 20 MG TABLET PO SCH (22:00)
== END 2021-12-04 17:26 | disposition home or self-care (01) ==
LOC: JER 21:25 → JERBED 23:37 → J8W 12-04 03:15
PROVIDERS: ADMIT Internal Medicine; ATTEND Nurse Practitioner Acute Care
PROC: 30233N1 Transfusion of Nonautologous Red Blood Cells into Peripheral Vein, Percutaneous Approach (ICD-10-PCS; principal; 2021-12-03)
PROC: 3E023GC Introduction of Other Therapeutic Substance into Muscle, Percutaneous Approach (ICD-10-PCS; 2021-12-03)
DX: D50.9 Iron deficiency anemia, unspecified (principal); I10 Essential (primary) hypertension; Z29.8 Encounter for other specified prophylactic measures; E66.8 Other obesity; Z68.31 Body mass index [BMI] 31.0-31.9, adult
CPT/HCPCS: 36415; 36430; 71046-TC-FY; 74177-TC; 76830-TC; 80053; 82728; 82962; 83540; 83550; 83735; 84100; 84703; 85025; 86850; 86900; 86901; 86922; 93005; 93010; 96372; 99285-25; C9803-CS; G0378; J1756; P9058; Q9967; U0003; U0005

== ENCOUNTER 2021-12-04 23:13 | Emergency (ER) | payer OTHER ==
[2021-12-04 23:26] VITALS: BP 159/96; PULSE 106; RESP 20; TEMP 98.3; BMI 30.2
[2021-12-05] MEDS ORDERED: ACETAMINOPHEN 500 MG TABLET (FP) PO ONE (00:34)
[2021-12-05] MEDS ORDERED: LIDOCAINE 5% TOPICAL PATCH TP ONE (00:35)
[2021-12-05] MEDS ORDERED: LIDOCAINE 5% TOPICAL PATCH ONE (00:55)
[2021-12-05] MEDS ORDERED: ACETAMINOPHEN 325 MG TABLET (FP) ONE (00:55)
== END 2021-12-05 01:43 | disposition home or self-care (01) ==
LOC: JER 23:13
DX: M54.50 Low back pain, unspecified (principal)
CPT/HCPCS: 99283-25

== ENCOUNTER 2021-12-07 19:49 | Emergency (ER) | payer OTHER ==
[2021-12-07 20:16] VITALS: TEMP 98.5; BMI 30.2
[2021-12-07] MEDS ORDERED: ACETAMINOPHEN 500 MG TABLET (FP) PO ONE (21:20)
[2021-12-07] MEDS ORDERED: ACETAMINOPHEN 325 MG TABLET (FP) ONE (22:26)
[2021-12-07 22:37] LABS: BASO % 0.4 % (0-2.0); EOS % 1.6 % (0-4.5); HEMATOCRIT 27.4 % (32.4-45.2); HEMOGLOBIN 8.5 GM/dL (10.7-15.3); LYMPH % 21.4 % (8-40); MCHC 31.1 g/dl (32.0-36.0); MEAN CELL VOLUME 58.3 fl (80-96); MEAN PLT VOLUME 8.4 fl (7.5-11.1); MONO % 4.5 % (3.8-10.2); NEUT % 72.1 % (42.8-82.8); PLATELET COUNT 340 10^3/uL (134-434); RBC 4.71 M/mm3 (3.60-5.2); RDW 20.7 % (11.6-15.6); WHITE BLOOD COUNT 7.5 K/mm3 (4.0-10.0)
[2021-12-07 22:38] LABS: MCH 18.1 pg (25.7-33.7)
[2021-12-07 22:43] LABS: INR 1.12 (0.83-1.09); PROTHROMBIN TIME (PATIENT) 12.9 SEC (9.7-13.0)
[2021-12-07 22:57] LABS: ANISOCYTOSIS 3+; MACROCYTOSIS 0; OVALOCYTE 1+; TARGET CELLS 2+; TEAR DROP CELLS 1+
[2021-12-07 22:58] LABS: CHLORIDE 106 mmol/L (98-107); SODIUM 141 mmol/L (136-145)
[2021-12-07 23:00] LABS: CALCIUM 9.2 mg/dL (8.5-10.1)
[2021-12-07 23:01] LABS: ALBUMIN 3.8 g/dl (3.4-5.0); ANION GAP 8 MMOL/L (8-16); BLOOD UREA NITROGEN 9.7 mg/dL (7-18); CO2 26 mmol/L (21-32); GLUCOSE,RANDOM 102 mg/dL (74-106)
[2021-12-07 23:04] LABS: CREATININE 0.8 mg/dL (0.55-1.3); SGOT/AST 10 U/L (15-37); SGPT/ALT 12 U/L (13-61)
[2021-12-07 23:06] LABS: BILIRUBIN,TOTAL 0.4 mg/dL (0.2-1); TOT PROT 7.8 g/dl (6.4-8.2)
[2021-12-07 23:07] LABS: ALK PHOS 66 U/L (45-117)
[2021-12-08 00:39] VITALS: BP 150/86; PULSE 70; RESP 18
== END 2021-12-08 00:39 | disposition home or self-care (01) ==
LOC: JER 19:49
DX: R51.9 Headache, unspecified (principal); I10 Essential (primary) hypertension
CPT/HCPCS: 36415; 70450-TC; 80053; 84702; 85025; 85610; 85730; 99284-25